=== PATIENT | female | born 1960 | race Caucasian/White ===

== ENCOUNTER → 2019-03-10 | Day surgery (SDC) | payer OTHER ==
[~2019-03-10] MED LIST: ATORVASTATIN CA20 MG PO; ETODOLAC500 MG PO; FENTANYL CITRATE/PF 100MCG/2 ML INJ ONE; GLUCOSAMINE &1 EACH PO; LEXAPRO20 MG PO; MIDAZOLAM HCL 2 MG/2 ML VIAL ONE; MULTIPLE VITAM1 EACH PO; OR PHACO EYE KIT ONE; PREOP PHACO EYE KIT ONE; VITAMIN B-12 PO
--- OUTSIDE RECORDS SUMMARY | 2019-03-10 10:04 | XMS REPORT | Continuity of Care Document ---
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 Role Phone [email or web address] Unavailable Unavailable Problems Problem Status Onset Date Classification Date Reported Comments Source SLURRED SPEECH Active 03/04/2017 [facility] SLURRED SPEECH, CEREBROVASCULAR ACCIDENT Active 03/04/2017 [place] APPENDICITIS Active 06/16/2014 [place] L KNEE Active 05/18/2013 [facility] Left leg pain Active Problem 06/19/2017 Thien Keyhani History of CVA Active Problem 06/19/2017 Th[facility] Problem 03[facility]2017 [facility] Hearing difficulty Resolved Problem 03/09/2017 [place] Hyperlipemia Resolved Problem 03/09/2017 [place] Arthritis Resolved Problem 03/09/2017 [place] Depressed Resolved Problem 03/09/2017 [place] Neuropathy Resolved Problem 03/09/2017 [place] APPENDICITIS NOS Active [place] CEREBRAL INFARCTION, UNSPECIFIED Active [facility] SLURRED SPEECH Active [facility] Medications Medication Details Route Status Patient Instructions Ordering Provider Order Date Source Cefuroxime 250 MG Oral Tablet [Ceftin] 250 mg=1 tab, PO, BID, X 7 day, # 14 tab, 0 Refill(s) Active 03/06/2017 [facility] Lexapro 20 mg, 2 tab, Route: PO, Drug form: TAB, Bedtime, Dosing Weight 114.091, kg, PRN Pain Score 1-5, Start date: 03/06/17 1:03:00 CDT, Duration: 30 day, Stop date: 04/05/17 1:02:00 CDTNotes: (Same as: Lexapro) Inactive 03/06/2017 [facility] Rocephin 1 gm, Route: IVPB, [id number], Dosing Weight 114.091, kg, Start date: 03/05/17 16:00:00 CDT, Duration: 3 day, Stop date: 03/07/17 16:00:00 CDT, ABX Indication: Other (specify in Comments)Notes: (Same As: Jona magaña). Use with 100 mL NS and infuse over 30 min MEDICATION WASTE Product Size: 1000 mg Product Wasted: ___ mg No Longer Active 03/05/2017 [facility] Pneumovax 23 0.5 mL, Route: IM, Drug Form: INJ, Daily, Start date: 03/05/17 11:00:00 CDT, Duration: 1 doses or times, Stop date: 03/05/17 11:00:00 CDTNotes: (Same as: Pneumovax 23) Refrigerate Inactive 03/05/2017 [facility] pneumococcal capsular polysaccharide type 1 vaccine / pneumococcal capsular polysaccharide type 10A vaccine / pneumococcal capsular polysaccharide type 11A vaccine / pneumococcal capsular polysaccharide type 12F vaccine / pneumococcal capsular polysacchar 0.5 mL, Route: IM, Drug Form: INJ, Daily, Start date: 03/05/17 9:00:00 CDT, Duration: 1 doses or times, Stop date: 03/05/17 9:00:00 CDTNotes: (Same as: Pneumovax 23) Refrigerate Inactive 03/05/2017 [facility] Aspirin 81 mg, 1 tab, Route: PO, Drug form: ECTAB, Daily, Dosing Weight 112.443, kg, Start date: 03/05/17 9:00:00 CDT, Duration: 30 day, Stop date: 04/03/17 9:00:00 CDTNotes: Do not crush or chew. (Same As: Ecotrin) No Longer Active 03/05/2017 [facility] Simvastatin 10 mg, 2 tab, Route: PO, Drug form: TAB, Bedtime, Dosing Weight 112.443, kg, Start date: 03/04/17 21:00:00 CDT, Duration: 30 day, Stop date: 04/02/17 21:00:00 CDTNotes: (Same as: Zocor) No Longer Active 03/05/2017 [facility] Aspirin 81 mg, PO, Daily, 0 Refill(s) Active 03/05/2017 [facility] gabapentin 300 MG Oral Capsule 300 mg=1 cap, PO, BID, # 90 cap, 1 Refill(s) Active 03/05/2017 [facility] gabapentin 300 MG Oral Capsule 300 mg, 1 cap, Route: PO, Drug form: CAP, BID, Dosing Weight 112.443, kg, Start date: 03/04/17 17:00:00 CDT, Duration: 30 day, Stop date: 04/03/17 9:00:00 CDTNotes: (Same as: Neurontin) No Longer Active 03/04/2017 [facility] Docusate 100 mg, 1 cap, Route: PO, Drug form: CAP, BID, Dosing Weight 112.443, kg, Start date: 03/04/17 17:00:00 CDT, Duration: 30 day, Stop date: 04/03/17 9:00:00 CDTNotes: (Same as: Colace) (Do Not Crush) No Longer Active 03/04/2017 [facility] tramadol hydrochloride 50 MG Oral Tablet 50 mg, 1 tab, Route: PO, Drug form: TAB, Q6H, Dosing Weight 112.443, kg, PRN Pain Score 1-3, Start date: 03/04/17 16:34:00 CDT, Duration: 30 day, Stop date: 04/03/17 16:33:00 CDTNotes: Not to exceed 400mg/day. (Same As: Ultram) No Longer Active 03/04/2017 [facility] Ondansetron 4 mg, 2 mL, Route: IVP, Drug form: INJ, Q6H, Dosing Weight 112.443, kg, PRN Nausea & Vomiting, Start date: 03/04/17 16:24:00 CDT, Duration: 30 day, Stop date: 04/03/17 16:23:00 CDTNotes: (Same as: Zofran) MEDICATION WASTE Product Size: 4 mg Product Wasted: ___ mg No Longer Active 03/04/2017 [facility] Acetaminophen 650 mg, 2 tab, Route: PO, Drug form: TAB, Q4H, Dosing Weight 112.443, kg, PRN Pain 1-3/Temp > 100.4 F, Start date: 03/04/17 16:24:00 CDT, Duration: 30 day, Stop date: 04/03/17 16:23:00 CDTNotes: Do not exceed 4 gm/day. (Same as: Tylenol) No Longer Active 03/04/2017 [facility] Aspirin 325 mg, 1 tab, Route: PO, Drug form: TAB, ONCE, Dosing Weight 112.443, kg, Priority: STAT, Start date: 03/04/17 15:32:00 CDT, Stop date: 03/04/17 15:32:00 CDTNotes: Take with food. Inactive 03/04/2017 [facility] NS (Bolus) IV 1,000 mL, 1,000 ml/hr, Infuse Over: 1 hr, Route: IV, 1,000, Drug form: INJ, ONCE, Priority: STAT, Dosing Weight 112.443 kg, Start date: 03/04/17 15:27:00 CDT, Duration: 1 doses or times, Stop date: 0 03/04/17 15:27:00 CDT Inactive 03/04/2017 [facility] Saline Flush 0.9% 10 mL, Route: IVP, Drug Form: INJ, Dosing Weight 112.443, kg, PRN, PRN Line Flush, Start date: 03/04/17 14:44:00 CDT, Duration: 30 day, Stop date: 04/03/17 14:43:00 CDTNotes: Same as: BD Posiflush Sterile No Longer Active 03/04/2017 [facility] Acetaminophen 300 MG / Codeine Phosphate 30 MG Oral Tablet [Tylenol with Codeine #3] 1 tab, PO, Q6H, for pain, # 30 tab, 0 Refill(s) Active 06/17/2014 [facility] Lovenox 40 mg, 0.4 mL, Route: SUB-Q, Drug form: INJ, Q24H, Dosing Weight 102.727, kg, Start date: 06/17/14 7:00:00, Duration: 30 day, Stop date: 07/16/14 7:00:00Notes: (Same as: Lovenox) Inactive 06/17/2014 [facility] Etodolac 300 MG Oral Capsule [Lodine] 500 mg, PO, BID, 0 Refill(s) Active 06/17/2014 [facility] simvastatin 40 mg oral tablet 500 mg=, PO, Bedtime, # 30 tab, 0 Refill(s) Active 06/17/2014 [facility] Famotidine 20 mg, 1 tab, Route: PO, Drug form: TAB, Q12H, Dosing Weight 102.727, kg, Start date: 06/16/14 9:00:00, Duration: 30 day, Stop date: 07/15/14 21:00:00Notes: (Same as: Pepcid) No Longer Active 06/16/2014 [facility] Albuterol 0.83 MG/ML Inhalant Solution 2.49 mg, 3 mL, Route: NEB, Drug form: SOLN, PRN, Dosing Weight 102.727, kg, PRN Respiratory Protocol, Start date: 06/16/14 8:15:00, Duration: 30 day, Stop date: 07/16/14 8:14:00Notes: SEE RT DOCUMENTATION (Same as: Proventil) Inactive 06/16/2014 [facility] Dexamethasone 4 mg, 1 mL, Route: IVP, Drug form: INJ, ONCE, Dosing Weight 102.727, kg, PRN Nausea & Vomiting, Start date: 06/16/14 8:15:00Notes: Concentration: 4mg/ml Inactive 06/16/2014 [facility] Promethazine 6.25 mg, 25 mL, Route: IVPB, Drug form: SOLN, ONCE, Dosing Weight 102.727, kg, PRN Nausea & Vomiting, Start date: 06/16/14 8:15:00 Inactive 06/16/2014 [facility] Ondansetron 4 mg, Route: IVP, ONCE, Dosing Weight 102.727, kg, PRN Nausea & Vomiting, Start date: 06/16/14 8:15:00 Inactive 06/16/2014 [facility] Naloxone 0.1 mg, 0.25 mL, Route: SUB-Q, Drug form: INJ, Q6H, Dosing Weight 102.727, kg, PRN Itching, Start date: 06/16/14 8:15:00, Duration: 30 day, Stop date: 07/16/14 8:14:00Notes: Same as Narcan Inactive 06/16/2014 [facility] Flumazenil 0.2 mg, 2 mL, Route: IVP, Drug form: INJ, PRN, Dosing Weight 102.727, kg, PRN Benzodiazepine Reversal, Initial dose, Start date: 06/16/14 8:15:00, Duration: 30 day, Stop date: 07/16/14 8:14:00Notes: (Same as: Romazicon) Inactive 06/16/2014 [facility] Ephedrine 5 mg, 0.1 mL, Route: IVP, Drug form: INJ, Q5Min, Dosing Weight 102.727, kg, PRN Low Blood Pressure, Start date: 06/16/14 8:15:00, Duration: 30 day, Stop date: 07/16/14 8:14:00Notes: (Same as: ePHEDrine Sulfate) Inactive 06/16/2014 [facility] Glycopyrrolate 0.2 mg, 1 mL, Route: IVP, Drug form: INJ, Q5Min, Dosing Weight 102.727, kg, PRN Bradycardia, Start date: 06/16/14 8:15:00, Duration: 3 doses or times, Stop date: Limited # of timesNotes: (Same as: Dawson) Inactive 06/16/2014 [facility] Racepinephrine 11.25 mg, 0.5 mL, Route: NEB, Drug Form: SOLN, Dosing Weight 102.727, kg, PRN, PRN Shortness of breath, Start date: 06/16/14 8:15:00, Duration: 30 day, Stop date: 07/16/14 8:14:00Notes: (racepinephrine *2.25% inh 0.5ml SOLN) (Same as:S2) Inactive 06/16/2014 [facility] Diphenhydramine 12.5 mg, 0.25 mL, Route: IVP, Drug form: INJ, Q6H, Dosing Weight 102.727, kg, PRN Itching, Start date: 06/16/14 8:15:00, Duration: 30 day, Stop date: 07/16/14 8:14:00Notes: (Same as: Benadryl) Inactive 06/16/2014 [facility] Oxycodone 10 mg, 2 tab, Route: PO, Drug form: TAB, Q4H, Dosing Weight 102.727, kg, PRN Pain Score 7-10, Start date: 06/16/14 8:15:00, Duration: 30 day, Stop date: 07/16/14 8:14:00Notes: (Same as: Roxicodone) Inactive 06/16/2014 [facility] Fentanyl 25 microgram, 0.5 mL, Route: IVP, Drug form: INJ, Q5Min, Dosing Weight 102.727, kg, PRN Pain Score 4-6, Start date: 06/16/14 8:15:00, Duration: 4 doses or times, Stop date: Limited # of timesNotes: (Same as: Sublimaze) Preservative free. Inactive 06/16/2014 [facility] Hydromorphone 0.5 mg, 0.25 mL, Route: IVP, Drug form: INJ, Q5Min, Dosing Weight 102.727, kg, PRN Pain Score 7-10, Start date: 06/16/14 8:15:00, Duration: 4 doses or times, Stop date: Limited # of timesNotes: Same as: Dilaudid Inactive 06/16/2014 [facility] Morphine 2 mg, 1 mL, Route: IVP, Drug form: INJ, Q5Min, Dosing Weight 102.727, kg, PRN Pain Score 4-6, Start date: 06/16/14 8:15:00, Duration: 5 doses or times, Stop date: Limited # of timesNotes: (Same as:MO RPhine Sulfate) Inactive 06/16/2014 [facility] Acetaminophen 1,000 mg, 100 mL, Route: IVPB, Drug form: INJ, ONCE, Dosing Weight 102.727, kg, PRN Pain Score 1-3, Start date: 06/16/14 8:15:00, Duration: 1 doses or times, Stop date: Limited # of timesNotes: Infuse over 15 minutes Do not exceed 4gm/day of acetaminophen Inactive 06/16/2014 [facility] Labetalol 10 mg, 2 mL, Route: IVP, Drug form: INJ, Q5Min, Dosing Weight 102.727, kg, PRN Elevated BP, Start date: 06/16/14 8:15:00, Duration: 5 doses or times, Stop date: Limited # of times Inactive 06/16/2014 [facility] Hydralazine 10 mg, 0.5 mL, Route: IVP, Drug form: INJ, Q20Min, Dosing Weight 102.727, kg, PRN Elevated BP, Start date: 06/16/14 8:15:00, Duration: 2 doses or times, Stop date: Limited # of timesNotes: (Same as: Apresoline) Push over 5 minutes Inactive 06/16/2014 [facility] Calcium Chloride 0.0014 MEQ/ML / Potassium Chloride 0.004 MEQ/ML / Sodium Chloride 0.103 MEQ/ML / Sodium Lactate 0.028 MEQ/ML Injectable Solution 500 mL, Rate: 125 ml/hr, Infuse over: 4 hr, Route: IV, Dosing Weight 102.727 kg, Total Volume: 500, Start date: 06/16/14 8:15:00, Duration: 30 day, Stop date: 07/16/14 8:14:00 Inactive 06/16/2014 [facility] Ondansetron 4 mg, 2 mL, Route: IVP, Drug form: INJ, Q6H, Dosing Weight 102.727, kg, PRN Nausea & Vomiting, Start date: 06/16/14 7:57:00, Duration: 30 day, Stop date: 07/16/14 7:56:00Notes: (Same as: Zofran) No Longer Active 06/16/2014 [facility] Temazepam 7.5 mg, 1 cap, Route: PO, Drug form: CAP, Bedtime, Dosing Weight 102.727, kg, PRN Insomnia, Start date: 06/16/14 7:57:00, Duration: 30 day, Stop date: 07/16/14 7:56:00Notes: (Same As: Restoril) No Longer Active 06/16/2014 [facility] Acetaminophen 325 MG / Hydrocodone Bitartrate 10 MG Oral Tablet 1 tab, Route: PO, Drug Form: TAB, Dosing Weight 102.727, kg, Q4H, PRN Pain Score 1-3, Start date: 06/16/14 7:57:00, Duration: 30 day, Stop date: 07/16/14 7:56:00Notes: Do not exceed 4gm/day of acetaminophen. (Same as: [place] 325/10) No Longer Active 06/16/2014 [facility] Morphine 2 mg, 1 mL, Route: IVP, Drug form: INJ, Q2H, Dosing Weight 102.727, kg, PRN Pain Score 4-6, Start date: 06/16/14 7:57:00, Duration: 30 day, Stop date: 07/16/14 7:56:00Notes: (Same as:MORPhine Sulfate) No Longer Active 06/16/2014 [facility] Calcium Chloride 0.0014 MEQ/ML / Potassium Chloride 0.004 MEQ/ML / Sodium Chloride 0.103 MEQ/ML / Sodium Lactate 0.028 MEQ/ML Injectable Solution 500 mL, Rate: 75 ml/hr, Infuse over: 6.7 hr, Route: IV, Dosing Weight 102.727 kg, Total Volume: 500, Start date: 06/16/14 7:57:00, Duration: 30 day, Stop date: 07/16/14 7:56:00 No Longer Active 06/16/2014 [facility] Escitalopram 20 MG Oral Tablet [Lexapro] 20 mg, PO, Bedtime, Pain Score 1-5, # 30 tab, 0 Refill(s) Active 06/16/2014 [facility] Lactated Ringers IV 500 mL 500 mL, Rate: 40 ml/hr, Infuse over: 12.5 hr, Route: IV, Dosing Weight 48.182 kg, Total Volume: 500, Start date: 06/16/14 5:10:00, Duration: 30 day, Stop date: 07/16/14 5:09:00 Inactive 06/16/2014 [facility] Invanz 1 gm, Route: IVPB, Drug form: INJ, [id number], Dosing Weight 48.182, kg, Start date: 06/16/14 3:00:00, Duration: 30 day, Stop date: 07/15/14 3:00:00Notes: (Same as: INVanz) Refrigerate. NOT COMPATIBLE WITH D5W. Stable in refrigerator for 24 hours. No Longer Active 06/16/2014 [facility] Zofran 4 mg, 2 mL, Route: IV, Drug form: INJ, Q8H, Dosing Weight 48.182, kg, PRN as needed for nausea/vomiting, Start date: 06/16/14 2:47:00, Duration: 30 day, Stop date: 07/16/14 2:46:00Notes: (Same as: Zofran) Inactive 06/16/2014 [facility] Morphine 4 mg, 1 mL, Route: IV, Drug form: INJ, Q2H, Dosing Weight 48.182, kg, PRN Pain, Start date: 06/16/14 2:47:00, Duration: 30 day, Stop date: 07/16/14 2:46:00, Severe pain 7-10Notes: (Same as:MORPhine Sulfate) Inactive 06/16/2014 [facility] Lactated Ringers IV 1,000 mL 1,000 mL, Rate: 100 ml/hr, Infuse over: 10 hr, Route: IV, Dosing Weight 48.182 kg, Total Volume: 1,000, Start date: 06/16/14 2:43:00, Duration: 30 day, Stop date: 07/16/14 2:42:00 Inactive 06/16/2014 [facility] Allergies, Adverse Reactions, Alerts No Known Medication Allergies Immunizations Immunization Date Given Site Status Last Updated Comments Source pneumococcal 23-valent vaccine 03/05/2017 Right deltoid completed [facility] Results Order Name Results Value Reference Range Date Interpretation Comments Source CHEM PANEL A/G Ratio 0.9 0.7 - 1.6 03/05/2017 [facility] CHEM PANEL AGAP 11.3 10.0 - 20.0 03/05/2017 [facility] CHEM PANEL B/C Ratio 22 6 - 25 03/05/2017 [facility] CHEM PANEL Globulin 3.8 2.7 - 4.2 03/05/2017 [facility] CHEM PANEL eGFR 77 03/05/2017 Result Comment: The eGFR is calculated using the CKD-EPI formula. In most young, healthy individuals the eGFR will be >90 mL/min/1.73m2. The eGFR declines with age. An eGFR of 60-89 may be normal in some populations, particularly the elderly, for whom the CKD-EPI formula has not been extensively validated. Use of the eGFR is not recommended in the following populations:

Individuals with unstable creatinine concentrations, including patients and those with serious co-morbid conditions.

Patients with extremes in muscle mass or diet.

The data above are obtained from the National Kidney Disease Education Program (NKDEP) which additionally recommends that when the eGFR is used in patients with extremes of body mass index for purposes of drug dosing, the eGFR should be multiplied by the estimated BMI. [place] CHEM PANEL Creatinine Lvl 0.85 0.50 - 1.40 03/05/2017 [place] CHEM PANEL Sodium Lvl 142 135 - 145 03/05/2017 [place] CHEM PANEL Potassium Lvl 4.3 3.5 - 5.1 03/05/2017 [place] CHEM PANEL Glucose Lvl 91 70 - 99 03/05/2017 [place] CHEM PANEL BUN 19 7 - 22 03/05/2017 [place] CHEM PANEL AST 16 0 - 37 03/05/2017 [place] CHEM PANEL Bili Total 0.4 0.2 - 1.3 03/05/2017 [place] CHEM PANEL Alk Phos 84 39 - 136 03/05/2017 [place] CHEM PANEL Chloride Lvl 109 95 - 109 03/05/2017 [place] CHEM PANEL CO2 26 24 - 32 03/05/2017 [place] CHEM PANEL Calcium Lvl 9.9 8.5 - 10.5 03/05/2017 [place] CHEM PANEL Total Protein 7.1 6.4 - 8.4 03/05/2017 [place] CHEM PANEL Albumin Lvl 3.3 3.5 - 5.0 03/05/2017 [place] CHEM PANEL ALT 22 0 - 65 03/05/2017 [place] HEMATOLOGY Eosinophils # 0.1 0.0 - 0.5 03/05/2017 [place] HEMATOLOGY Lymphocytes # 2.5 1.0 - 5.5 03/05/2017 [place] HEMATOLOGY Segs-Bands # 7.5 1.5 - 8.1 03/05/2017 [place] HEMATOLOGY Monocytes # 0.7 0.0 - 0.8 03/05/2017 [place] HEMATOLOGY Basophils 0.4 0.0 - 1.0 03/05/2017 [place] HEMATOLOGY Eosinophils 1.2 0.0 - 4.0 03/05/2017 [place] HEMATOLOGY Monocytes 6.5 2.0 - 12.0 03/05/2017 [facility] HEMATOLOGY Segs 69.3 45.0 - 75.0 03/05/2017 [facility] HEMATOLOGY Lymphocytes 22.6 20.0 - 40.0 03/05/2017 [facility] HEMATOLOGY RDW 15.2 11.5 - 14.5 03/05/2017 [facility] HEMATOLOGY Platelet 263 133 - 450 03/05/2017 [facility] HEMATOLOGY MCHC 32.7 32.0 - 36.0 03/05/2017 [facility] HEMATOLOGY MCH 27.8 27.0 - 31.0 03/05/2017 [facility] HEMATOLOGY MPV 9.2 7.4 - 10.4 03/05/2017 [facility] HEMATOLOGY MCV 85.0 80.0 - 98.0 03/05/2017 [facility] HEMATOLOGY Hct 40.6 36.0 - 48.0 03/05/2017 [facility] HEMATOLOGY RBC 4.78 4.20 - 5.40 03/05/2017 [facility] HEMATOLOGY Hgb 13.3 12.0 - 16.0 03/05/2017 [facility] HEMATOLOGY WBC 10.9 3.7 - 10.4 03/05/2017 [facility] URINE AND STOOL UA Urobilinogen <=1.0 mg/dL 0.1 - 1.0 03/05/2017 [facility] URINE AND STOOL UA Spec Grav >=1.050 *ABN* (03/04/17 7:01 PM) <=1.030 03/05/2017 [facility] URINE AND STOOL UA RBC 4 0 - 2 03/05/2017 [facility] URINE AND STOOL UA Mucus Few /LPF None Seen /LPF 03/05/2017 [facility] URINE AND STOOL UA WBC 20 0 - 5 03/05/2017 [facility] URINE AND STOOL UA Sq Epi Few /LPF Few /LPF 03/05/2017 [facility] URINE AND STOOL UA Blood Negative (03/04/17 7:01 PM) Negative 03/05/2017 [facility] URINE AND STOOL UA Bili Moderate *ABN* (03/04/17 7:01 PM) Negative 03/05/2017 [facility] URINE AND STOOL UA Nitrite Positive *ABN* (03/04/17 7:01 PM) Negative 03/05/2017 [facility] URINE AND STOOL UA Leuk Est Large *ABN* (03/04/17 7:01 PM) Negative 03/05/2017 [facility] URINE AND STOOL UA Protein 20 mg/dL Negative mg/dL 03/05/2017 [facility] URINE AND STOOL UA pH 6.5 5.0 - 8.0 03/05/2017 [facility] URINE AND STOOL UA Turbidity Clear (03/04/17 7:01 PM) Clear 03/05/2017 [facility] URINE AND STOOL UA Color Yellow *NA* (03/04/17 7:01 PM) Yellow 03/05/2017 [facility] URINE AND STOOL UA Glucose Negative mg/dL Negative mg/dL 03/05/2017 [facility] URINE AND STOOL UA Ketones Negative mg/dL Negative mg/dL 03/05/2017 [facility] CARDIAC ENZYMES Troponin-I <0.02 0.00 - 0.40 03/04/2017 [facility] CARDIAC ENZYMES CK MB <1.0 0.5 - 3.6 03/04/2017 [facility] CARDIAC ENZYMES Total CK 74 12 - 191 03/04/2017 [facility] CARDIAC ENZYMES CK MB Index <1.4 0.0 - 2.5 03/04/2017 [facility] CHEM PANEL eGFR 58 03/04/2017 Result Comment: The eGFR is calculated using the CKD-EPI formula. In most young, healthy individuals the eGFR will be >90 mL/min/1.73m2. The eGFR declines with age. An eGFR of 60-89 may be normal in some populations, particularly the elderly, for whom the CKD-EPI formula has not been extensively validated. Use of the eGFR is not recommended in the following populations:

Individuals with unstable creatinine concentrations, including patients and those with serious co-morbid conditions.

Patients with extremes in muscle mass or diet.

The data above are obtained from the National Kidney Disease Education Program (NKDEP) which additionally recommends that when the eGFR is used in patients with extremes of body mass index for purposes of drug dosing, the eGFR should be multiplied by the estimated BMI. [place] CHEM PANEL Globulin 4.0 2.7 - 4.2 03/04/2017 [facility] CHEM PANEL A/G Ratio 0.8 0.7 - 1.6 03/04/2017 [place] CHEM PANEL B/C Ratio 21 6 - 25 03/04/2017 [place] CHEM PANEL Creatinine Lvl 1.06 0.50 - 1.40 03/04/2017 [place] CHEM PANEL Chloride Lvl 110 95 - 109 03/04/2017 [place] CHEM PANEL Potassium Lvl 4.0 3.5 - 5.1 03/04/2017 [place] CHEM PANEL Bili Total 0.5 0.2 - 1.3 03/04/2017 [place] CHEM PANEL AGAP 12.0 10.0 - 20.0 03/04/2017 [place] CHEM PANEL Sodium Lvl 142 135 - 145 03/04/2017 [place] CHEM PANEL AST 19 0 - 37 03/04/2017 [place] CHEM PANEL Alk Phos 86 39 - 136 03/04/2017 [place] CHEM PANEL ALT 19 0 - 65 03/04/2017 [place] CHEM PANEL Albumin Lvl 3.4 3.5 - 5.0 03/04/2017 [place] CHEM PANEL Total Protein 7.4 6.4 - 8.4 03/04/2017 [place] CHEM PANEL Calcium Lvl 10.1 8.5 - 10.5 03/04/2017 [place] CHEM PANEL CO2 24 24 - 32 03/04/2017 [place] CHEM PANEL BUN 22 7 - 22 03/04/2017 [place] CHEM PANEL Glucose Lvl 110 70 - 99 03/04/2017 [place] HEMATOLOGY PTT 24.3 22.9 - 35.8 03/04/2017 [place] HEMATOLOGY PT 12.6 12.0 - 14.7 03/04/2017 [place] HEMATOLOGY INR 0.92 0.85 - 1.17 03/04/2017 [facility] HEMATOLOGY MPV 9.0 7.4 - 10.4 03/04/2017 [place] HEMATOLOGY MCHC 32.6 32.0 - 36.0 03/04/2017 [facility] HEMATOLOGY Platelet 297 133 - 450 03/04/2017 [facility] HEMATOLOGY RDW 15.5 11.5 - 14.5 03/04/2017 [facility] HEMATOLOGY RBC 4.90 4.20 - 5.40 03/04/2017 [facility] HEMATOLOGY Hct 41.6 36.0 - 48.0 03/04/2017 [place] HEMATOLOGY MCV 84.9 80.0 - 98.0 03/04/2017 [place] HEMATOLOGY MCH 27.6 27.0 - 31.0 03/04/2017 [place] HEMATOLOGY Hgb 13.5 12.0 - 16.0 03/04/2017 [place] HEMATOLOGY WBC 10.3 3.7 - 10.4 03/04/2017 [place] HEMATOLOGY Eosinophils # 0.1 0.0 - 0.5 03/04/2017 [place] HEMATOLOGY Lymphocytes # 2.2 1.0 - 5.5 03/04/2017 [place] HEMATOLOGY Monocytes # 0.8 0.0 - 0.8 03/04/2017 [place] HEMATOLOGY Segs-Bands # 7.2 1.5 - 8.1 03/04/2017 [place] HEMATOLOGY Basophils 0.3 0.0 - 1.0 03/04/2017 [place] HEMATOLOGY Eosinophils 0.7 0.0 - 4.0 03/04/2017 [place] HEMATOLOGY Monocytes 8.0 2.0 - 12.0 03/04/2017 [place] HEMATOLOGY Lymphocytes 21.1 20.0 - 40.0 03/04/2017 [place] HEMATOLOGY Segs 69.9 45.0 - 75.0 03/04/2017 [facility] LIPIDS CHD Risk 3.05 3.90 - 5.80 03/04/2017 [place] LIPIDS VLDL 47 03/04/2017 [facility] LIPIDS LDL (Calculated) 74 <=99 mg/dL 03/04/2017 [facility] LIPIDS Chol 180 <=199 mg/dL 03/04/2017 [facility] LIPIDS Trig 236 <=149 mg/dL 03/04/2017 [facility] [facility] LIPIDS HDL 59 >=61 mg/dL 03/04/2017 [place] SPECIAL CHEMISTRY Hgb A1C 6.3 <=5.6 % 03/04/2017 [place] CHEM PANEL POC BUN 24 7 - 22 03/04/2017 [facility] CHEM PANEL POC Creatinine 1.0 0.5 - 1.4 03/04/2017 [facility] CHEM PANEL POC Ion Ca 1.29 1.05 - 1.25 03/04/2017 [place] CHEM PANEL POC Glucose 114 70 - 99 03/04/2017 [facility] CHEM PANEL eGFR 63 03/04/2017 Result Comment: The eGFR is calculated using the CKD-EPI formula. In most young, healthy individuals the eGFR will be >90 mL/min/1.73m2. The eGFR declines with age. An eGFR of 60-89 may be normal in some populations, particularly the elderly, for whom the CKD-EPI formula has not been extensively validated. Use of the eGFR is not recommended in the following populations:

Individuals with unstable creatinine concentrations, including patients and those with serious co-morbid conditions.

Patients with extremes in muscle mass or diet.

The data above are obtained from the National Kidney Disease Education Program (NKDEP) which additionally recommends that when the eGFR is used in patients with extremes of body mass index for purposes of drug dosing, the eGFR should be multiplied by the estimated BMI. [facility] CHEM PANEL POC Hemoglobin 15.3 12.0 - 16.0 03/04/2017 [facility] CHEM PANEL POC Hematocrit 45.0 36.0 - 48.0 03/04/2017 [facility] CHEM PANEL POC AGAP 16.0 10.0 - 20.0 03/04/2017 [facility] CHEM PANEL POC Potassium 4.0 3.5 - 5.1 03/04/2017 [facility] CHEM PANEL POC Chloride 108 95 - 109 03/04/2017 [facility] CHEM PANEL POC Carbon Dioxide 24 24 - 32 03/04/2017 [facility] CHEM PANEL POC Sodium 143 135 - 145 03/04/2017 [facility] HEMATOLOGY Basophils 0.1 0.0 - 1.0 06/17/2014 [facility] HEMATOLOGY Lymphocytes # 1.4 1.0 - 5.5 06/17/2014 [facility] HEMATOLOGY Eosinophils # 0.0 0.0 - 0.5 06/17/2014 [facility] HEMATOLOGY Monocytes # 0.6 0.0 - 0.8 06/17/2014 [facility] HEMATOLOGY Basophils # 0.0 0.0 - 0.2 06/17/2014 [facility] HEMATOLOGY Segs-Bands # 6.6 1.5 - 8.1 06/17/2014 [facility] HEMATOLOGY Segs 77.0 45.0 - 75.0 06/17/2014 [facility] HEMATOLOGY Lymphocytes 16.0 20.0 - 40.0 06/17/2014 [facility] HEMATOLOGY Eosinophils 0.2 0.0 - 4.0 06/17/2014 [facility] HEMATOLOGY Monocytes 6.7 2.0 - 12.0 06/17/2014 [facility] MPV 8.8 7.4 - 10.4 06/17/2014 [facility] RDW 14.5 11.5 - 14.5 06/17/2014 [facility] HEMATOLOGY MCHC 32.2 32.0 - 36.0 06/17/2014 [facility] Platelet 174 133 - 450 06/17/2014 [facility] MCH 29.3 27.0 - 31.0 06/17/2014 [facility] RBC 3.77 4.20 - 5.40 06/17/2014 [facility] Hgb 11.0 12.0 - 16.0 06/17/2014 [facility] Hct 34.2 36.0 - 48.0 06/17/2014 [facility] MCV 90.9 80.0 - 98.0 06/17/2014 [facility] WBC 8.5 3.7 - 10.4 06/17/2014 [facility] Pathology Reports No Data Provided for This Section Diagnostic Reports Report Value Date Source Brain wo contrast MRI Clinical Indication: - CVA eval. Slurred speech Comparison: CTA head and neck CT 03/04/2017 TECHNIQUE: MRI of the brain is performed without gadolinium contrast with axial T1, T2, FLAIR and diffusion weighted imaging along with sagittal T2, and coronal T1 weighted imaging. No intravenous contrast administration. FINDINGS: BRAIN PARENCHYMA: Brain parenchymal signal characteristics are appropriate for age. Mild generalized age-related parenchymal atrophy. There is no mass effect or midline shift. There are no extra-axial fluid collection, or intraparenchymal hemorrhage. There is no magnetic susceptibility to suggest recent or remote intracranial hemorrhage. There is no diffusion weighted imaging or ADC map abnormality to suggest acute/subacute ischemia. Remote left cerebellar hemispheric infarct. CEREBELLOPONTINE REGIONS AND SKULL BASE: The cerebellopontine angles appear unremarkable. The skull base, craniocervical junction, and brainstem region are normal. The optic chiasm is normal. The sellar and pineal regions are unremarkable. VENTRICLES: No acute hydrocephalus. Basilar cisterns are patent. VESSELS: The expected intracranial flow voids are maintained. ORBITS, VISUALIZED PARANASAL SINUSES AND MASTOIDS: No acute abnormality of the visualized orbits or paranasal sinuses. The mastoid air cells are clear. IMPRESSION: 1. No magnetic resonance imaging evidence for acute intracranial process. 2. Remote left cerebellar hemispheric infarct. 3. Mild age-related parenchymal volume loss. SL: [id number] 03/05/2017 [facility] Chest 1view DX Clinical Indication: - slurred speech Comparison: None FINDINGS: Single frontal radiograph of the chest is performed. Heart size is within normal limits. Mediastinal contours are unremarkable. Lungs are clear without infiltrate or mass. No pleural effusion or pneumothorax. No acute osseous abnormality. IMPRESSION: 1. No radiographic evidence for acute process in the chest. SL: [id number] 03/04/2017 [facility] Brain/Neck CTA EXAM: CT angiography of the head and neck with IV contrast; CT head without IV contrast INDICATION: Slurred speech COMPARISON: None Technique: Axial CT images through the head, neck, and upper chest were obtained with IV contrast. Axial CT images through the head without IV contrast were also obtained. Coronal and sagittal reformats were obtained. 3-D reconstructions were obtained as well. Contrast: 100 cc of IV Omnipaque contrast material was used for the exam. CT Radiation Dose DLP 2753.0 mGy-cm FINDINGS: HEAD: No evidence for hemorrhage, mass, or acute infarct. Lacunar infarct involving the vasogenic edema is identified on series 2 image 24. Infarct involving the superior left cerebellum is also nonacute. Lateral ventricles are symmetric and nondilated. Basal cisterns are widely patent. Chatterjee-white matter differentiation is maintained. Paranasal sinuses and mastoid air cells are clear. Orbits are within normal limits. No acute osseous abnormalities identified. NECK: Parotid, submandibular, and thyroid glands are within normal limits. The aerodigestive tract is within normal limits. Parapharyngeal fat planes are symmetric. No threshold and enlarged cervical or supraclavicular lymph nodes identified. Visualized superior mediastinal soft tissues are within normal limits. Visualized lung apices are clear. No suspicious lytic or blastic osseous lesions identified. VASCULATURE: Major aortic branch vessels are widely patent. Common carotid arteries are also widely patent. There is minimal amount of atherosclerotic calcification involving the proximal internal carotid arteries at the bifurcation. No hemodynamically significant stenosis is identified. No aneurysm or dissection identified either. Left vertebral arteries are widely patent without aneurysm. No dissection. Left vertebral artery is hypoplastic relative to the left and terminates as the left posterior inferior cerebellar artery. The distal right internal carotid, basilar, and posterior cerebral arteries are widely patent without aneurysm. 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 Atherosclerotic calcifications course along the cavernous portion of the left internal carotid artery. No hemodynamically significant stenosis or aneurysm identified. The middle and anterior cerebral arteries are also patent without aneurysm. 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 No acute intracranial abnormalities otherwise. No hemodynamically significant stenosis or aneurysm involving the head or neck arterial vasculature. SL: [id number] 03/04/2017 [place] Consultation Notes No Data Provided for This Section Discharge Summaries No Data Provided for This Section History and Physicals No Data Provided for This Section Vital Signs Vital Sign Value Date Comments Source Temperature Oral (F) 98.1 F 03/06/2017 [place] Heart Rate 69 03/06/2017 [place] Respitory Rate 14 03/06/2017 [place] Systolic (mm Hg) 131 03/06/2017 [place] Diastolic (mm Hg) 90 03/06/2017 [place] Temperature Oral (F) 98.7 F 03/06/2017 [place] Respitory Rate 20 03/06/2017 [place] Heart Rate 65 03/06/2017 [place] Systolic (mm Hg) 110 03/06/2017 [place] Diastolic (mm Hg) 72 03/06/2017 [place] Respitory Rate 20 03/06/2017 [place] Systolic (mm Hg) 124 03/06/2017 [place] Diastolic (mm Hg) 75 03/06/2017 [place] Heart Rate 67 03/06/2017 [place] Temperature Oral (F) 98.2 F 03/06/2017 [place] BMI Calculated 37.14 03/05/2017 [place] Height 175.26 cm 03/05/2017 [place] Weight 114.091 03/05/2017 [place] Weight 112.443 03/04/2017 [place] Height 175.26 cm 03/04/2017 [place] BMI Calculated 36.61 03/04/2017 [place] Diastolic (mm Hg) 55 06/17/2014 [place] Temperature Oral (F) 98 F 06/17/2014 [place] Systolic (mm Hg) 98 06/17/2014 [place] Heart Rate 54 06/17/2014 [place] Respitory Rate 16 06/17/2014 [place] Diastolic (mm Hg) 66 06/17/2014 [place] Respitory Rate 14 06/17/2014 [place] Heart Rate 62 06/17/2014 [place] Systolic (mm Hg) 104 06/17/2014 [place] Temperature Oral (F) 98.2 F 06/17/2014 [place] Diastolic (mm Hg) 63 06/17/2014 [place] Systolic (mm Hg) 101 06/17/2014 [place] Respitory Rate 14 06/17/2014 [place] Heart Rate 67 06/17/2014 [place] Temperature Oral (F) 97.8 F 06/17/2014 [place] Weight 114.744 06/16/2014 [place] Weight 102.727 06/16/2014 [place] BMI Calculated 34.43 06/16/2014 [place] Height 172.72 cm 06/16/2014 [place] Encounters Location Location Details Encounter Type Encounter Number Reason For Visit Attending Provider ADM Date DC Date Status Source [id number] L KNEE LOLLY GREEN 05/18/2013 Active [facility] Inpatient [id number] Kaiser Raezamzam 06/16/2014 06/17/2014 [facility] Inpatient [id number] Cecilia Austin 03/04/2017 03/06/2017 [facility] Procedures Procedure Code Date Perfomer Comments Source Appendix operation [id number] [place] Cholecystectomy [id number] [place] Hysterectomy [id number] [place] Laparoscopic sleeve gastrectomy [id number] [facility] Assessment and Plan Assessment and Plan Date Source Extracted from:Title: Clinical Document Author: Álvaro Hansen MD Date: 03/06/17 DC Summary dictated # [id number] Extracted from:Title: Neuro Progress Note Author: Glenn Grande DO Date: 03/05/17 Assessment/Plan Patient likely with stroke currently pending MRI. Will treat with antiplatelet medication. She has had multiple strokes in the past that she did not know aboutrecommend stop smoking. Acute UTI Cerebral infarction due to thrombosis of left middle cerebral artery Ordered: [id number] [facility] Care/Day 25 Minutes, 03/05/17 18:07:00 CDT, 24 hr [id number] Initial Inpatient Consult New/Estab Pt 80 Min, 03/04/17 20:57:00 CDT, 24 hr Slurred speech Ordered: [id number] [facility] Care/Day 25 Minutes, 03/05/17 18:07:00 CDT, 24 hr Extracted from:Title: Neurologic consult Author: Glenn Grande DO Date: 03/04/17 Impression and Plan Patient with dizziness and slurred speech concerning for possible stroke. NIH stroke scale was 2 she was not a candidate for TPA due to improvement of symptoms. Stroke risk factors include previous stroke as well as tobacco abuse. Will obtain MRI of the brain and MRA of head and neck echocardiogram. Continue with antiplatelet medication and statin therapy. Recommend stop smoking. Extracted from:Title: General Admission H&P * Author: Cecilia Austin MD Date: 03/04/17 Impression and Plan 56 yo fm with HLD presents with slurred speech concerning for acute CVA 1.CVA with slurred speech -speech continues to be slurred on exam -Concern for CVA -tele Neuro consulted, did not get tpa -CTA H/N without acute findings -MRI brain pending -TTE with bubble study -Neurology consulted -ASA statin -npo until speech eval -permissive HTN 2.HLD -lipid panel pending -continue statin 3.Leg pain -pt had a doppler US done as an oupt. -Have requested RN to get records of results 4.Osteoarthritis -tramadol Code Full Admit to inpatient 03/06/2017 [facility] Extracted from:Title: Clinical Document Author: Kaiser Saldivar MD Date: 06/16/14 Post Operative Procedure Note A complete detailed Operative Report must follow within 24 hours of the procedure. Pre-Operative Diagnosis: Acute appendicitis Post-Operative Diagnosis: same Surgeon/Endoscopist/Physician(s): Janna Water Softener Servicer(s): none Procedure Performed: lap appy Estimated Blood Loss: min Specimens Removed: appendix Findings of the Procedure: as above Dictation ID for complete detailed Operative Report:: Anesthesia:gen/local 06/17/2014 [facility] Plan of Care No Data Provided for This Section Social History Social History Date Source Social History TypeResponse Substance Abuse Use: None. Alcohol Current, Type Wine. Frequency: 1-2 times per year. Smoking Status Current every day smoker; Previous treatment: None; Ready to change: Yes; Concerns about tobacco use in household: No; Exposure to Tobacco Smoke None; Cigarette Smoking Last 365 Days No; Reg Smoking Cessation Counseling No 03/05/2017 [facility] Family History No Data Provided for This Section Advance Directives No Data Provided for This Section Functional Status No Data Provided for This Section
--- OUTSIDE RECORDS SUMMARY | 2019-03-10 10:05 | XMS REPORT ---
Author Author Jass Hoskins Organization [employer] Address Unknown Phone Unavailable Care Team Providers Care Turn Operator Name Role Phone Jass Hoskins CP Unavailable Allergies No Known Allergies Problems Problem Type Condition Code Onset Dates Condition Status Problem Left leg pain M79.605 Active Problem History of CVA (cerebrovascular accident) Z86.73 Active Problem PVD (peripheral vascular disease) I73.9 Active Medications No Known Medications Results No Known Results Summary Purpose [employer] Submission
--- OUTSIDE RECORDS SUMMARY | 2019-03-10 10:05 | XMS REPORT | CCD ---
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
--- OUTSIDE RECORDS SUMMARY | 2019-03-10 10:05 | XMS REPORT | Summary of Care ---
Author Organization Unknown Address Unknown Phone Unavailable Encounter KATEY Thompson(CARL) [id number] Date(s): 06/16/14 - 06/17/14 [facility] [address] [address]- [facility] Discharge Disposition: Home Physician Attending: Kaiser Saldivar MD Physician Admitting: Kaiser Saldivar MD Reason for Visit APPENDICITIS Vital Signs 1 2 3 Most recent to oldest [Reference Range]: 172.72 cm (06/16/14 2:41 AM) Height 98 DegF (06/17/14 6:47 AM) 98.2 DegF (06/17/14 3:51 AM) 97.8 DegF (06/17/14 12:34 AM) Temperature Oral [96.4-99.1 DegF] 98 mmHg (06/17/14 6:47 AM) 104 mmHg (06/17/14 3:51 AM) 101 mmHg (06/17/14 12:34 AM) Systolic Blood Pressure [90-140 mmHg] 55 mmHg *LOW* (06/17/14 6:47 AM) 66 mmHg (06/17/14 3:51 AM) 63 mmHg (06/17/14 12:34 AM) Diastolic Blood Pressure [60-90 mmHg] 16 BRMIN (06/17/14 6:47 AM) 14 BRMIN (06/17/14 3:51 AM) 14 BRMIN (06/17/14 12:34 AM) Respiratory Rate [14-20 BRMIN] 54 bpm *LOW* (06/17/14 6:47 AM) 62 bpm (06/17/14 3:51 AM) 67 bpm (06/17/14 12:34 AM) Peripheral Pulse Rate [60-100 bpm] 114.744 kg (06/16/14 11:18 AM) 102.727 kg (06/16/14 6:00 AM) Weight 34.43 m2 (06/16/14 6:00 AM) Body Mass Index Problem List Condition Effective Dates Status Health Status Informant Abdominal Active pain(Confirmed) Allergies, Adverse Reactions, Alerts Substance Reaction Severity Status NKDA Active Medications acetaminophen 1,000 mg, 100 mL, Route: IVPB, Drug form: INJ, ONCE, Dosing Weight 102.727, kg, PRN Pain Score 1-3, Start date: 06/16/14 8:15:00, Duration: 1 doses or times, St op date: Limited # of times Notes: Infuse over 15 minutes Do not exceed 4gm/day of acetaminophen Start Date: 06/16/14 Stop Date: 06/16/14 Status: Discontinued acetaminophen-hydrocodone 325 mg-10 mg oral tablet 1 tab, Route: PO, Drug Form: TAB, Dosing Weight 102.727, kg, Q4H, PRN Pain Score 1-3, Start date: 06/16/14 7:57:00, Duration: 30 day, Stop date: 07/16/14 7:56:00 Notes: Do not exceed 4gm/day of acetaminophen. (Same as: [place] 325/10) Start Date: 06/16/14 Stop Date: 06/17/14 Status: Discontinued albuterol 0.083% inhalation solution 2.49 mg, 3 mL, Route: NEB, Drug form: SOLN, PRN, Dosing Weight 102.727, kg, PRN Respiratory Protocol, Start date: 06/16/14 8:15:00, Duration: 30 day, Stop date: 07/16/14 8:14:00 Notes: SEE RT DOCUMENTATION (Same as: Saleem) Start Date: 06/16/14 Stop Date: 06/16/14 Status: Discontinued albuterol 0.083% inhalation solution 2.49 mg, 3 mL, Route: NEB, Drug form: SOLN, Q20Min, Dosing Weight 102.727, kg, P RN Wheezing, Priority: STAT, Start date: 06/16/14 8:15:00, Duration: 30 day, Sto p date: 07/16/14 8:14:00 Notes: SEE RT DOCUMENTATION (Same as: Proventil) Start Date: 06/16/14 Stop Date: 06/16/14 Status: Discontinued dexamethasone 4 mg, 1 mL, Route: IVP, Drug form: INJ, ONCE, Dosing Weight 102.727, kg, PRN Timmy sea & Vomiting, Start date: 06/16/14 8:15:00 Notes: Concentration: 4mg/ml Start Date: 06/16/14 Stop Date: 06/16/14 Status: Discontinued diphenhydrAMINE 12.5 mg, 0.25 mL, Route: IVP, Drug form: INJ, Q6H, Dosing Weight 102.727, kg, AR N Itching, Start date: 06/16/14 8:15:00, Duration: 30 day, Stop date: 07/16/14 8 :14:00 Notes: (Same as: Benadryl) Start Date: 06/16/14 Stop Date: 06/16/14 Status: Discontinued ePHEDrine 5 mg, 0.1 mL, Route: IVP, Drug form: INJ, Q5Min, Dosing Weight 102.727, kg, PRN Low Blood Pressure, Start date: 06/16/14 8:15:00, Duration: 30 day, Stop date: 09/16/13 8:14:00 Notes: (Same as: ePHEDrine Sulfate) Start Date: 06/16/14 Stop Date: 06/16/14 Status: Discontinued famotidine 20 mg, 1 tab, Route: PO, Drug form: TAB, Q12H, Dosing Weight 102.727, kg, Start date: 06/16/14 9:00:00, Duration: 30 day, Stop date: 07/15/14 21:00:00 Notes: (Same as: Pepcid) Start Date: 06/16/14 Stop Date: 06/17/14 Status: Discontinued fentaNYL 25 microgram, 0.5 mL, Route: IVP, Drug form: INJ, Q5Min, Dosing Weight 102.727, kg, PRN Pain Score 4-6, Start date: 06/16/14 8:15:00, Duration: 4 doses or times , Stop date: Limited # of times Notes: (Same as: Sublimaze) Preservative free. Start Date: 06/16/14 Stop Date: 06/16/14 Status: Discontinued flumazenil 0.2 mg, 2 mL, Route: IVP, Drug form: INJ, PRN, Dosing Weight 102.727, kg, PRN Be nzodiazepine Reversal, Initial dose, Start date: 06/16/14 8:15:00, Duration: 30 day, Stop date: 07/16/14 8:14:00 Notes: (Same as: Romazicon) Start Date: 06/16/14 Stop Date: 06/16/14 Status: Discontinued glycopyrrolate 0.2 mg, 1 mL, Route: IVP, Drug form: INJ, Q5Min, Dosing Weight 102.727, kg, PRN Bradycardia, Start date: 06/16/14 8:15:00, Duration: 3 doses or times, Stop date : Limited # of times Notes: (Same as: Robinul) Start Date: 06/16/14 Stop Date: 06/16/14 Status: Discontinued hydrALAZINE 10 mg, 0.5 mL, Route: IVP, Drug form: INJ, Q20Min, Dosing Weight 102.727, kg, AR N Elevated BP, Start date: 06/16/14 8:15:00, Duration: 2 doses or times, Stop da te: Limited # of times Notes: (Same as: Apresoline)Push over 5 minutes Start Date: 06/16/14 Stop Date: 06/16/14 Status: Discontinued hydromorphone 0.5 mg, 0.25 mL, Route: IVP, Drug form: INJ, Q5Min, Dosing Weight 102.727, kg, P RN Pain Score 7-10, Start date: 06/16/14 8:15:00, Duration: 4 doses or times, St op date: Limited # of times Notes: Same as: Dilaudid Start Date: 06/16/14 Stop Date: 06/16/14 Status: Discontinued INVanz + Sodium Chloride 0.9% IV 100 mL 1 gm, Route: IVPB, Drug form: INJ, CFCS96P, Dosing Weight 48.182, kg, Start date : 06/16/14 3:00:00, Duration: 30 day, Stop date: 07/15/14 3:00:00 Notes: (Same as: INVanz) Refrigerate. NOT COMPATIBLE WITH D5W. Stable in refri gerator for 24 hours. Start Date: 06/16/14 Stop Date: 06/17/14 Status: Discontinued labetalol 10 mg, 2 mL, Route: IVP, Drug form: INJ, Q5Min, Dosing Weight 102.727, kg, PRN E levated BP, Start date: 06/16/14 8:15:00, Duration: 5 doses or times, Stop date: Limited # of times Start Date: 06/16/14 Stop Date: 06/16/14 Status: Discontinued Lactated Ringers Injection IV 500 mL 500 mL, Rate: 125 ml/hr, Infuse over: 4 hr, Route: IV, Dosing Weight 102.727 kg, Total Volume: 500, Start date: 06/16/14 8:15:00, Duration: 30 day, Stop date: 1 09/16/13 8:14:00 Start Date: 06/16/14 Stop Date: 06/16/14 Status: Discontinued Lactated Ringers Injection IV 500 mL 500 mL, Rate: 75 ml/hr, Infuse over: 6.7 hr, Route: IV, Dosing Weight 102.727 kg , Total Volume: 500, Start date: 06/16/14 7:57:00, Duration: 30 day, Stop date: 07/16/14 7:56:00 Start Date: 06/16/14 Stop Date: 06/17/14 Status: Discontinued Lactated Ringers IV 1,000 mL 1,000 mL, Rate: 100 ml/hr, Infuse over: 10 hr, Route: IV, Dosing Weight 48.182 k g, Total Volume: 1,000, Start date: 06/16/14 2:43:00, Duration: 30 day, Stop bridgett e: 07/16/14 2:42:00 Start Date: 06/16/14 Stop Date: 06/16/14 Status: Discontinued Lactated Ringers IV 500 mL 500 mL, Rate: 40 ml/hr, Infuse over: 12.5 hr, Route: IV, Dosing Weight 48.182 kg , Total Volume: 500, Start date: 06/16/14 5:10:00, Duration: 30 day, Stop date: 07/16/14 5:09:00 Start Date: 06/16/14 Stop Date: 06/16/14 Status: Discontinued Lexapro 20 mg oral tablet 20 mg, PO, Bedtime, Pain Score 1-5, # 30 tab, 0 Refill(s) Start Date: 06/16/14 Status: Ordered Lodine 300 mg oral capsule 500 mg, PO, BID, 0 Refill(s) Start Date: 06/16/14 Status: Ordered Lovenox 40 mg, 0.4 mL, Route: SUB-Q, Drug form: INJ, Q24H, Dosing Weight 102.727, kg, St art date: 06/17/14 7:00:00, Duration: 30 day, Stop date: 07/16/14 7:00:00 Notes: (Same as: Lovenox) Start Date: 06/17/14 Stop Date: 06/17/14 Status: Discontinued morphine Sulfate 2 mg, 1 mL, Route: IVP, Drug form: INJ, Q5Min, Dosing Weight 102.727, kg, PRN Pa in Score 4-6, Start date: 06/16/14 8:15:00, Duration: 5 doses or times, Stop bridgett e: Limited # of times Notes: (Same as:MORPhine Sulfate) Start Date: 06/16/14 Stop Date: 06/16/14 Status: Discontinued morphine Sulfate 4 mg, 1 mL, Route: IV, Drug form: INJ, Q2H, Dosing Weight 48.182, kg, PRN Pain, Start date: 06/16/14 2:47:00, Duration: 30 day, Stop date: 07/16/14 2:46:00, Sev ere pain 7-10 Notes: (Same as:MORPhine Sulfate) Start Date: 06/16/14 Stop Date: 06/16/14 Status: Discontinued morphine Sulfate 2 mg, 1 mL, Route: IV, Drug form: INJ, Q2H, Dosing Weight 48.182, kg, PRN Pain, Start date: 06/16/14 2:47:00, Duration: 30 day, Stop date: 07/16/14 2:46:00, Mil d pain 3-6 Notes: (Same as:MORPhine Sulfate) Start Date: 06/16/14 Stop Date: 06/16/14 Status: Discontinued morphine Sulfate 2 mg, 1 mL, Route: IVP, Drug form: INJ, Q2H, Dosing Weight 102.727, kg, PRN Pain Score 4-6, Start date: 06/16/14 7:57:00, Duration: 30 day, Stop date: 07/16/14 7:56:00 Notes: (Same as:MORPhine Sulfate) Start Date: 06/16/14 Stop Date: 06/17/14 Status: Discontinued naloxone 0.1 mg, 0.25 mL, Route: SUB-Q, Drug form: INJ, Q6H, Dosing Weight 102.727, kg, P RN Itching, Start date: 06/16/14 8:15:00, Duration: 30 day, Stop date: 07/16/14 8:14:00 Notes: Same as Narcan Start Date: 06/16/14 Stop Date: 06/16/14 Status: Discontinued naloxone 0.04 mg, 0.1 mL, Route: IVP, Drug form: INJ, Q2MIN, Dosing Weight 102.727, kg, P RN Narcotic Reversal, Start date: 06/16/14 8:15:00, Duration: 8 doses or times, Stop date: Limited # of times Notes: Same as Narcan Start Date: 06/16/14 Stop Date: 06/16/14 Status: Discontinued ondansetron 4 mg, Route: IVP, ONCE, Dosing Weight 102.727, kg, PRN Nausea & Vomiting, Start date: 06/16/14 8:15:00 Start Date: 06/16/14 Stop Date: 06/16/14 Status: Completed ondansetron 4 mg, 2 mL, Route: IVP, Drug form: INJ, Q6H, Dosing Weight 102.727, kg, PRN Naus ea & Vomiting, Start date: 06/16/14 7:57:00, Duration: 30 day, Stop date: 07/16/14 7:56:00 Notes: (Same as: Zofran) Start Date: 06/16/14 Stop Date: 06/17/14 Status: Discontinued oxyCODONE 10 mg, 2 tab, Route: PO, Drug form: TAB, Q4H, Dosing Weight 102.727, kg, PRN Melania n Score 7-10, Start date: 06/16/14 8:15:00, Duration: 30 day, Stop date: 4 8:14:00 Notes: (Same as: Roxicodone) Start Date: 06/16/14 Stop Date: 06/16/14 Status: Discontinued oxyCODONE 5 mg, 1 tab, Route: PO, Drug form: TAB, Q4H, Dosing Weight 102.727, kg, PRN Pain Score 4-6, Start date: 06/16/14 8:15:00, Duration: 30 day, Stop date: 07/16/14 8:14:00 Notes: (Same as: Roxicodone) Start Date: 06/16/14 Stop Date: 06/16/14 Status: Discontinued promethazine 6.25 mg, 25 mL, Route: IVPB, Drug form: SOLN, ONCE, Dosing Weight 102.727, kg, P RN Nausea & Vomiting, Start date: 06/16/14 8:15:00 Start Date: 06/16/14 Stop Date: 06/16/14 Status: Discontinued racepinephrine 11.25 mg, 0.5 mL, Route: NEB, Drug Form: SOLN, Dosing Weight 102.727, kg, PRN, P RN Shortness of breath, Start date: 06/16/14 8:15:00, Duration: 30 day, Stop bridgett e: 07/16/14 8:14:00 Notes: (racepinephrine *2.25% inh 0.5ml SOLN) (Same as:S2) Start Date: 06/16/14 Stop Date: 06/16/14 Status: Discontinued simvastatin 40 mg oral tablet 500 mg=, PO, Bedtime, # 30 tab, 0 Refill(s) Start Date: 06/16/14 Status: Ordered temazepam 7.5 mg, 1 cap, Route: PO, Drug form: CAP, Bedtime, Dosing Weight 102.727, kg, AR N Insomnia, Start date: 06/16/14 7:57:00, Duration: 30 day, Stop date: 07/16/14 7:56:00 Notes: (Same As: Restoril) Start Date: 06/16/14 Stop Date: 06/17/14 Status: Discontinued Tylenol with Codeine #3 oral tablet 1 tab, PO, Q6H, for pain, # 30 tab, 0 Refill(s) Start Date: 06/17/14 Status: Ordered Zofran 4 mg, 2 mL, Route: IV, Drug form: INJ, Q8H, Dosing Weight 48.182, kg, PRN as nee ded for nausea/vomiting, Start date: 06/16/14 2:47:00, Duration: 30 day, Stop da te: 07/16/14 2:46:00 Notes: (Same as: Araceli) Start Date: 06/16/14 Stop Date: 06/16/14 Status: Discontinued Results HEMATOLOGY Most recent to 1 oldest [Reference Range]: WBC [3.7-10.4 K/CMM] 8.5 K/CMM (06/17/14 3:12 AM) RBC [4.20-5.40 3.77 M/CMM M/CMM] *LOW* (06/17/14 3:12 AM) Hgb [12.0-16.0 g/dL] 11.0 g/dL *LOW* (06/17/14 3:12 AM) Hct [36.0-48.0 %] 34.2 % *LOW* (06/17/14 3:12 AM) MCV [80.0-98.0 fL] 90.9 fL (06/17/14 3:12 AM) MCH [27.0-31.0 pg] 29.3 pg (06/17/14 3:12 AM) MCHC [32.0-36.0 32.2 g/dL g/dL] (06/17/14 3:12 AM) RDW [11.5-14.5 %] 14.5 % (06/17/14 3:12 AM) Platelet [133-450 174 K/CMM K/CMM] (06/17/14 3:12 AM) MPV [7.4-10.4 fL] 8.8 fL (06/17/14 3:12 AM) Segs [45.0-75.0 %] 77.0 % *HI* (06/17/14 3:12 AM) Lymphocytes 16.0 % [20.0-40.0 %] *LOW* (06/17/14 3:12 AM) Monocytes [2.0-12.0 6.7 % %] (06/17/14 3:12 AM) Eosinophils [0.0-4.0 0.2 % %] (06/17/14 3:12 AM) Basophils [0.0-1.0 0.1 % %] (06/17/14 3:12 AM) Segs-Bands # 6.6 K/CMM [1.5-8.1 K/CMM] (06/17/14 3:12 AM) Lymphocytes # 1.4 K/CMM [1.0-5.5 K/CMM] (06/17/14 3:12 AM) Monocytes # [0.0-0.8 0.6 K/CMM K/CMM] (06/17/14 3:12 AM) Eosinophils # 0.0 K/CMM [0.0-0.5 K/CMM] (06/17/14 3:12 AM) Basophils # [0.0-0.2 0.0 K/CMM K/CMM] (06/17/14 3:12 AM) Medications Administered During Your Visit No data available for this section Immunizations No data available for this section Social History Social History Type Response Alcohol Use: Current, Type: Wine, Frequency: 1-2 times per month Smoking Status Current every day smoker, Previous treatment: None, Ready to change: Yes, Concerns about tobacco use in household: No, Exposure to Tobacco Smoke None, Cigarette Smoking Last 365 Days No, Reg Smoking Cessation Counseling No Assessment and Plan Extracted from: Title: Clinical Document Author: Kaiser Saldivar MD Date: 06/16/14 Post Operative Procedure Note A complete detailed Operative Report must follow within 24 hours of the procedure. Pre-Operative Diagnosis: Acute appendicitis Post-Operative Diagnosis: same Surgeon/Endoscopist/Physician(s): Janna Pillowcase Cleaner(s): none Procedure Performed: lap appy Estimated Blood Loss: min Specimens Removed: appendix Findings of the Procedure: as above Dictation ID for complete detailed Operative Report:: Anesthesia:gen/local
--- OUTSIDE RECORDS SUMMARY | 2019-03-10 10:05 | XMS REPORT | Summary of Care ---
Author Author [facility] Organization [facility] Address Unknown Phone Unavailable Encounter KATEY Thompson(CARL) [id number] Date(s): 03/04/17 - 03/06/17 [facility] [address] [place] [address]- Discharge Disposition: Home or Self Care Attending Physician: Cecilia Austin MD Admitting Physician: Cecilia Austin MD Vital Signs 1 2 3 Most recent to oldest [Reference Range]: 175.26 cm (03/04/17 7:41 PM) 175.26 cm (03/04/17 2:41 PM) Height 98.1 DegF (03/06/17 8:21 AM) 98.7 DegF (03/06/17 4:43 AM) 98.2 DegF (03/06/17 12:07 AM) Temperature Oral [96.4-99.1 DegF] 131/90 mmHg (03/06/17 8:21 AM) 110/72 mmHg (03/06/17 4:43 AM) 124/75 mmHg (03/06/17 12:07 AM) Blood Pressure [90-140/60-90 mmHg] 14 BRMIN (03/06/17 8:21 AM) 20 BRMIN (03/06/17 4:43 AM) 20 BRMIN (03/06/17 12:07 AM) Respiratory Rate [14-20 BRMIN] 69 bpm (03/06/17 8:21 AM) 65 bpm (03/06/17 4:43 AM) 67 bpm (03/06/17 12:07 AM) Peripheral Pulse Rate [60-100 bpm] 114.091 kg (03/04/17 7:41 PM) 112.443 kg (03/04/17 2:41 PM) Weight 37.14 m2 (03/04/17 7:41 PM) 36.61 m2 (03/04/17 2:41 PM) Body Mass Index Problem List Condition Effective Dates Status Health Status Informant Abdominal Active pain(Confirmed) Hearing Resolved difficulty(Confirmed ) Hyperlipemia(Confirm Resolved ed) Arthritis(Confirmed) Resolved Depressed(Confirmed) Resolved Neuropathy(Confirmed Resolved ) Allergies, Adverse Reactions, Alerts Substance Reaction Severity Status NKDA Active Medications acetaminophen 650 mg, 2 tab, Route: PO, Drug form: TAB, Q4H, Dosing Weight 112.443, kg, PRN Pa in 1-3/Temp > 100.4 F, Start date: 03/04/17 16:24:00 CDT, Duration: 30 day, Stop date: 04/03/17 16:23:00 CDT Notes: Do not exceed 4 gm/day. (Same as: Tylenol) Start Date: 03/04/17 Stop Date: 03/06/17 Status: Discontinued aspirin 81 mg, 1 tab, Route: PO, Drug form: ECTAB, Daily, Dosing Weight 112.443, kg, Sta rt date: 03/05/17 9:00:00 CDT, Duration: 30 day, Stop date: 04/03/17 9:00:00 CDT Notes: Do not crush or chew.(Same As: Ecotrin) Start Date: 03/05/17 Stop Date: 03/06/17 Status: Discontinued aspirin 81 mg, PO, Daily, 0 Refill(s) Start Date: 03/04/17 Status: Ordered aspirin 325 mg, 1 tab, Route: PO, Drug form: TAB, ONCE, Dosing Weight 112.443, kg, Prior ity: STAT, Start date: 03/04/17 15:32:00 CDT, Stop date: 03/04/17 15:32:00 CDT Notes: Take with food. Start Date: 03/04/17 Stop Date: 03/04/17 Status: Completed Ceftin 250 mg oral tablet 250 mg=1 tab, PO, BID, X 7 day, # 14 tab, 0 Refill(s) Start Date: 03/06/17 Stop Date: 03/13/17 Status: Ordered docusate 100 mg, 1 cap, Route: PO, Drug form: CAP, BID, Dosing Weight 112.443, kg, Start date: 03/04/17 17:00:00 CDT, Duration: 30 day, Stop date: 04/03/17 9:00:00 CDT Notes: (Same as: Colace) (Do Not Crush) Start Date: 03/04/17 Stop Date: 03/06/17 Status: Discontinued gabapentin 300 mg oral capsule 300 mg, 1 cap, Route: PO, Drug form: CAP, BID, Dosing Weight 112.443, kg, Start date: 03/04/17 17:00:00 CDT, Duration: 30 day, Stop date: 04/03/17 9:00:00 CDT Notes: (Same as: Neurontin) Start Date: 03/04/17 Stop Date: 03/06/17 Status: Discontinued gabapentin 300 mg oral capsule 300 mg=1 cap, PO, BID, # 90 cap, 1 Refill(s) Start Date: 03/04/17 Status: Ordered Lexapro 20 mg, 2 tab, Route: PO, Drug form: TAB, Bedtime, Dosing Weight 114.091, kg, PRN Pain Score 1-5, Start date: 03/06/17 1:03:00 CDT, Duration: 30 day, Stop date: 04/05/17 1:02:00 CDT Notes: (Same as: Lexapro) Start Date: 03/06/17 Stop Date: 03/06/17 Status: Discontinued NS (Bolus) IV 1,000 mL, 1,000 ml/hr, Infuse Over: 1 hr, Route: IV, 1,000, Drug form: INJ, ONCE , Priority: STAT, Dosing Weight 112.443 kg, Start date: 03/04/17 15:27:00 CDT, D uration: 1 doses or times, Stop date: 03/04/17 15:27:00 CDT Start Date: 03/04/17 Stop Date: 03/04/17 Status: Completed ondansetron 4 mg, 2 mL, Route: IVP, Drug form: INJ, Q6H, Dosing Weight 112.443, kg, PRN Naus ea & Vomiting, Start date: 03/04/17 16:24:00 CDT, Duration: 30 day, Stop date: 04/03/17 16:23:00 CDT Notes: (Same as: Araceli) MEDICATION WASTE Product Size: 4 mgProduct Was [place]: ___ mg Start Date: 03/04/17 Stop Date: 03/06/17 Status: Discontinued pneumococcal 23-valent vaccine 0.5 mL, Route: IM, Drug Form: INJ, Daily, Start date: 03/05/17 9:00:00 CDT, Dura tion: 1 doses or times, Stop date: 03/05/17 9:00:00 CDT Notes: (Same as: Pneumovax 23) Refrigerate Start Date: 03/05/17 Stop Date: 03/05/17 Status: Completed Pneumovax 23 0.5 mL, Route: IM, Drug Form: INJ, Daily, Start date: 03/05/17 11:00:00 CDT, Dur ation: 1 doses or times, Stop date: 03/05/17 11:00:00 CDT Notes: (Same as: Pneumovax 23) Refrigerate Start Date: 03/05/17 Stop Date: 03/05/17 Status: Completed Rocephin + sodium chloride 0.9% INJ 100 mL 1 gm, Route: IVPB, [id number], Dosing Weight 114.091, kg, Start date: 03/05/17 16:0 0:00 CDT, Duration: 3 day, Stop date: 03/07/17 16:00:00 CDT, ABX Indication: Oth er (specify in Comments) Notes: (Same As: Rocephin).Use with 100 mL NS and infuse over 30 min MEDICA TION WASTE Product Size: 1000 mgProduct Wasted: ___ mg Start Date: 03/05/17 Stop Date: 03/06/17 Status: Discontinued Saline Flush 0.9% 10 mL, Route: IVP, Drug Form: INJ, Dosing Weight 112.443, kg, PRN, PRN Line Flus h, Start date: 03/04/17 14:44:00 CDT, Duration: 30 day, Stop date: 04/03/17 14:4 3:00 CDT Notes: Same as: BD Posiflush Sterile Start Date: 03/04/17 Stop Date: 03/06/17 Status: Discontinued simvastatin 10 mg, 2 tab, Route: PO, Drug form: TAB, Bedtime, Dosing Weight 112.443, kg, Sta rt date: 03/04/17 21:00:00 CDT, Duration: 30 day, Stop date: 04/02/17 21:00:00 C DT Notes: (Same as: Zocor) Start Date: 03/04/17 Stop Date: 03/06/17 Status: Discontinued tramadol 50 mg oral tablet 50 mg, 1 tab, Route: PO, Drug form: TAB, Q6H, Dosing Weight 112.443, kg, PRN Melania n Score 1-3, Start date: 03/04/17 16:34:00 CDT, Duration: 30 day, Stop date: 16:33:00 CDT Notes: Not to exceed 400mg/day. (Same As: Ultram) Start Date: 03/04/17 Stop Date: 03/06/17 Status: Discontinued Results ELECTROLYTES 1 2 3 Most recent to oldest [Reference Range]: 142 mEq/L (03/05/17 3:54 AM) 142 mEq/L (03/04/17 3:15 PM) Sodium Lvl [135-145 mEq/L] 4.3 mEq/L (03/05/17 3:54 AM) 4.0 mEq/L (03/04/17 3:15 PM) Potassium Lvl [3.5-5.1 mEq/L] 109 mEq/L (03/05/17 3:54 AM) 110 mEq/L *HI* (03/04/17 3:15 PM) Chloride Lvl [95-109 mEq/L] 26 mEq/L (03/05/17 3:54 AM) 24 mEq/L (03/04/17 3:15 PM) CO2 [24-32 mEq/L] 11.3 mEq/L (03/05/17 3:54 AM) 12.0 mEq/L (03/04/17 3:15 PM) AGAP [10.0-20.0 mEq/L] 143 mEq/L (03/04/17 2:49 PM) POC Sodium [135-145 mEq/L] 4.0 mEq/L (03/04/17 2:49 PM) POC Potassium [3.5-5.1 mEq/L] 108 mEq/L (03/04/17 2:49 PM) POC Chloride [95-109 mEq/L] 24 mEq/dL (03/04/17 2:49 PM) POC Carbon Dioxide [24-32 mEq/dL] 16.0 mEq/L (03/04/17 2:49 PM) POC AGAP [10.0-20.0 mEq/L] CHEM PANEL 1 2 3 Most recent to oldest [Reference Range]: 0.85 mg/dL (03/05/17 3:54 AM) 1.06 mg/dL (03/04/17 3:15 PM) Creatinine Lvl [0.50-1.40 mg/dL] 77 mL/min/1.73m2 1 *NA* (03/05/17 3:54 AM) 58 mL/min/1.73m2 2 *NA* (03/04/17 3:15 PM) 63 mL/min/1.73m2 3 *NA* (03/04/17 2:49 PM) eGFR 19 mg/dL (03/05/17 3:54 AM) 22 mg/dL (03/04/17 3:15 PM) BUN [7-22 mg/dL] 22 (03/05/17 3:54 AM) 21 (03/04/17 3:15 PM) B/C Ratio [6-25] 91 mg/dL (03/05/17 3:54 AM) 110 mg/dL *HI* (03/04/17 3:15 PM) Glucose Lvl [70-99 mg/dL] 1.0 mg/dL (03/04/17 2:49 PM) POC Creatinine [0.5-1.4 mg/dL] 24 mg/dL *HI* (03/04/17 2:49 PM) POC BUN [7-22 mg/dL] 114 mg/dL *HI* (03/04/17 2:49 PM) POC Glucose [70-99 mg/dL] 7.1 g/dL (03/05/17 3:54 AM) 7.4 g/dL (03/04/17 3:15 PM) Total Protein [6.4-8.4 g/dL] 3.3 g/dL *LOW* (03/05/17 3:54 AM) 3.4 g/dL *LOW* (03/04/17 3:15 PM) Albumin Lvl [3.5-5.0 g/dL] 3.8 g/dL (03/05/17 3:54 AM) 4.0 g/dL (03/04/17 3:15 PM) Globulin [2.7-4.2 g/dL] 0.9 (03/05/17 3:54 AM) 0.8 (03/04/17 3:15 PM) A/G Ratio [0.7-1.6] 9.9 mg/dL (03/05/17 3:54 AM) 10.1 mg/dL (03/04/17 3:15 PM) Calcium Lvl [8.5-10.5 mg/dL] 1.29 mMol/L *HI* (03/04/17 2:49 PM) POC Ion Ca [1.05-1.25 mMol/L] 22 unit/L (03/05/17 3:54 AM) 19 unit/L (03/04/17 3:15 PM) ALT [0-65 unit/L] 16 unit/L (03/05/17 3:54 AM) 19 unit/L (03/04/17 3:15 PM) AST [0-37 unit/L] 84 unit/L (03/05/17 3:54 AM) 86 unit/L (03/04/17 3:15 PM) Alk Phos [39-136 unit/L] 0.4 mg/dL (03/05/17 3:54 AM) 0.5 mg/dL (03/04/17 3:15 PM) Bili Total [0.2-1.3 mg/dL] 1Result Comment: The eGFR is calculated using the [...] from the National Kid[employer] Disease Education Program ( NKDEP) which additionally recommends that when the eGFR is used in patients with extremes of body mass index for purposes of drug dosing, the eGFR should be mul tiplied by the estimated BMI. 2Result Comment: The eGFR is calculated using the [...] from the National Kid[employer] Education Program ( NKDEP) which additionally recommends that when the eGFR is used in patients with extremes of body mass index for purposes of drug dosing, the eGFR should be mul tiplied by the estimated BMI. 3Result Comment: The eGFR is calculated using the [...] from the National Kid[employer] Disease Education Program ( NKDEP) which additionally recommends that when the eGFR is used in patients with extremes of body mass index for purposes of drug dosing, the eGFR should be mul tiplied by the estimated BMI. CARDIAC ENZYMES 1 2 3 Most recent to oldest [Reference Range]: 74 unit/L (03/04/17 3:15 PM) Total CK [12-191 unit/L] <1.0 ng/mL (03/04/17 3:15 PM) CK MB [0.5-3.6 ng/mL] <1.4 (03/04/17 3:15 PM) CK MB Index [0.0-2.5] <0.02 ng/mL (03/04/17 3:15 PM) Troponin-I [0.00-0.40 ng/mL] LIPIDS 1 2 3 Most recent to oldest [Reference Range]: 3.05 *LOW* (03/04/17 3:15 PM) CHD Risk [3.90-5.80] 180 mg/dL (03/04/17 3:15 PM) Chol [<=199 mg/dL] 236 mg/dL *HI* (03/04/17 3:15 PM) Trig [<=149 mg/dL] 59 mg/dL *LOW* (03/04/17 3:15 PM) HDL [>=61 mg/dL] 74 mg/dL (03/04/17 3:15 PM) LDL (Calculated) [<=99 mg/dL] 47 *NA* (03/04/17 3:15 PM) VLDL SPECIAL CHEMISTRY 1 2 3 Most recent to oldest [Reference Range]: 6.3 % *HI* (03/04/17 3:15 PM) Hgb A1C [<=5.6 %] URINE AND STOOL 1 2 3 Most recent to oldest [Reference Range]: Clear (03/04/17 7:01 PM) UA Turbidity [Clear] Yellow *NA* (03/04/17 7:01 PM) UA Color [Yellow] 6.5 (03/04/17 7:01 PM) UA pH [5.0-8.0] >=1.050 *ABN* (03/04/17 7:01 PM) UA Spec Grav [<=1.030] Negative mg/dL *NA* (03/04/17 7:01 PM) UA Glucose [Negative mg/dL] Negative (03/04/17 7:01 PM) UA Blood [Negative] Negative mg/dL *NA* (03/04/17 7:01 PM) UA Ketones [Negative mg/dL] 20 mg/dL *ABN* (03/04/17 7:01 PM) UA Protein [Negative mg/dL] <=1.0 mg/dL *NA* (03/04/17 7:01 PM) UA Urobilinogen [0.1-1.0 mg/dL] Moderate *ABN* (03/04/17 7:01 PM) UA Bili [Negative] Large *ABN* (03/04/17 7:01 PM) UA Leuk Est [Negative] Positive *ABN* (03/04/17 7:01 PM) UA Nitrite [Negative] 20 /HPF *HI* (03/04/17 7:01 PM) UA WBC [0-5 /HPF] 4 /HPF *HI* (03/04/17 7:01 PM) UA RBC [0-2 /HPF] Few /LPF *NA* (03/04/17 7:01 PM) UA Sq Epi [Few /LPF] Few /LPF *NA* (03/04/17 7:01 PM) UA Mucus [None Seen /LPF] HEMATOLOGY 1 2 3 Most recent to oldest [Reference Range]: 10.9 K/CMM *HI* (03/05/17 3:54 AM) 10.3 K/CMM (03/04/17 3:15 PM) WBC [3.7-10.4 K/CMM] 4.78 M/CMM (03/05/17 3:54 AM) 4.90 M/CMM (03/04/17 3:15 PM) RBC [4.20-5.40 M/CMM] 13.3 g/dL (03/05/17 3:54 AM) 13.5 g/dL (03/04/17 3:15 PM) Hgb [12.0-16.0 g/dL] 40.6 % (03/05/17 3:54 AM) 41.6 % (03/04/17 3:15 PM) Hct [36.0-48.0 %] 85.0 fL (03/05/17 3:54 AM) 84.9 fL (03/04/17 3:15 PM) MCV [80.0-98.0 fL] 27.8 pg (03/05/17 3:54 AM) 27.6 pg (03/04/17 3:15 PM) MCH [27.0-31.0 pg] 32.7 g/dL (03/05/17 3:54 AM) 32.6 g/dL (03/04/17 3:15 PM) MCHC [32.0-36.0 g/dL] 15.2 % *HI* (03/05/17 3:54 AM) 15.5 % *HI* (03/04/17 3:15 PM) RDW [11.5-14.5 %] 263 K/CMM (03/05/17 3:54 AM) 297 K/CMM (03/04/17 3:15 PM) Platelet [133-450 K/CMM] 9.2 fL (03/05/17 3:54 AM) 9.0 fL (03/04/17 3:15 PM) MPV [7.4-10.4 fL] 15.3 g/dL (03/04/17 2:49 PM) POC Hemoglobin [12.0-16.0 g/dL] 45.0 % (03/04/17 2:49 PM) POC Hematocrit [36.0-48.0 %] 69.3 % (03/05/17 3:54 AM) 69.9 % (03/04/17 3:15 PM) Segs [45.0-75.0 %] 22.6 % (03/05/17 3:54 AM) 21.1 % (03/04/17 3:15 PM) Lymphocytes [20.0-40.0 %] 6.5 % (03/05/17 3:54 AM) 8.0 % (03/04/17 3:15 PM) Monocytes [2.0-12.0 %] 1.2 % (03/05/17 3:54 AM) 0.7 % (03/04/17 3:15 PM) Eosinophils [0.0-4.0 %] 0.4 % (03/05/17 3:54 AM) 0.3 % (03/04/17 3:15 PM) Basophils [0.0-1.0 %] 7.5 K/CMM (03/05/17 3:54 AM) 7.2 K/CMM (03/04/17 3:15 PM) Segs-Bands # [1.5-8.1 K/CMM] 2.5 K/CMM (03/05/17 3:54 AM) 2.2 K/CMM (03/04/17 3:15 PM) Lymphocytes # [1.0-5.5 K/CMM] 0.7 K/CMM (03/05/17 3:54 AM) 0.8 K/CMM (03/04/17 3:15 PM) Monocytes # [0.0-0.8 K/CMM] 0.1 K/CMM (03/05/17 3:54 AM) 0.1 K/CMM (03/04/17 3:15 PM) Eosinophils # [0.0-0.5 K/CMM] 12.6 seconds (03/04/17 3:15 PM) PT [12.0-14.7 seconds] 0.92 (03/04/17 3:15 PM) INR [0.85-1.17] 24.3 seconds (03/04/17 3:15 PM) PTT [22.9-35.8 seconds] Immunizations Given and Recorded Vaccine Date Status Refusal Reason pneumococcal 23-valent vaccine 03/05/17 Given Procedures Procedure Date Related Diagnosis Body Site Appendix operation Cholecystectomy Hysterectomy Laparoscopic sleeve gastrectomy Social History Social History Type Response Substance Abuse Use: None. Alcohol Current, Type Wine. Frequency: 1-2 times per year. Smoking Status Current every day smoker; Previous treatment: None; Ready to change: Yes; Concerns about tobacco use in household: No; Exposure to Tobacco Smoke None; Cigarette Smoking Last 365 Days No; Reg Smoking Cessation Counseling No Assessment and Plan Extracted from: Title: Clinical Document Author: Álvaro Hansen MD Date: 03/06/17 DC Summary dictated # [id number] Extracted from: Title: Neuro Progress Note Author: Glenn Grande DO Date: 03/05/17 Assessment/Plan Patient likely with stroke currently pending MRI. Will treat with antiplatelet medication. She has had multiple strokes in the past that she did not know aboutrecommend stop smoking. Acute UTI Cerebral infarction due to thrombosis of left middle cerebral artery Ordered: [id number] [facility] Hospital Care/Day 25 Minutes, 03/05/17 18:07:00 CDT, 24 hr [id number] Initial Inpatient Consult New/Estab Pt 80 Min, 03/04/17 20:57:00 CDT, 24 hr Slurred speech Ordered: [id number] [facility] Hospital Care/Day 25 Minutes, 03/05/17 18:07:00 CDT, 24 hr Extracted from: Title: Neurologic consult Author: Glenn Grande DO Date: [...] and statin therapy. Recommend stop smoking. Extracted from: Title: General Admission H&P * Author: Cecilia Austin [...]
[2019-03-10 13:40] VITALS: BP 118/81
== END | disposition home or self-care (01) ==
LOC: OR 10:01
PROVIDERS: ATTEND Ophthalmology
DX: H25.11 Age-related nuclear cataract, right eye (principal); H91.90 Unspecified hearing loss, unspecified ear; M46.89 Other specified inflammatory spondylopathies, multiple sites in spine; E78.5 Hyperlipidemia, unspecified; F32.9 Major depressive disorder, single episode, unspecified; F17.210 Nicotine dependence, cigarettes, uncomplicated; Z79.82 Long term (current) use of aspirin; Z86.73 Personal history of transient ischemic attack (TIA), and cerebral infarction without residual deficits
CPT/HCPCS: 66984; J2250; J3010; V2787

== ENCOUNTER → 2019-03-24 | Day surgery (SDC) | payer OTHER ==
--- OUTSIDE RECORDS SUMMARY | 2019-03-24 12:18 | XMS REPORT | Clinical Summary ---
Author Author [facility] Organization [facility] Address Unknown Phone Unavailable Care Team Providers Care Scale Expert Name Role Phone Gabe Cole MD PCP Allergies No Known Allergies Medications End Date Status Medication Sig Dispensed Refills Start Date Active aspirin (ECOTRIN) 81 MG Take 81 mg by 0 enteric coated tablet mouth. 01/19/2020 Active etodolac (LODINE) 500 MG Take 1 tablet 180 tablet 0 tablet (500 mg 9 total) by mouth 2 (two) times a day. 01/19/2020 Active escitalopram (LEXAPRO) 20 Take 1 tablet 90 tablet 0 01/19/201 MG tablet (20 mg total) 9 by mouth every morning. 01/19/2020 Active atorvastatin (LIPITOR) 20 Take 1 tablet 90 tablet 0 01/19/201 MG tablet (20 mg total) 9 by mouth nightly. 05/06/2019 Active gabapentin (NEURONTIN) Take 1 90 capsule 0 300 mg capsule capsule (300 9 mg total) by mouth daily for 90 days. 04/11/2018 atorvastatin (LIPITOR) 20 Take 1 tablet 14 tablet 0 03/28/201 MG tablet (20 mg total) 8 by mouth daily for 14 days. Default OP ins 04/10/2018 Discontinued (Reorder) escitalopram (LEXAPRO) 20 Take 20 mg by 0 MG tablet mouth. 04/10/2018 Discontinued (Reorder) atorvastatin (LIPITOR) 20 Take 20 mg by 0 MG tablet mouth. 04/10/2018 Discontinued (Reorder) etodolac (LODINE) 500 MG Take 500 mg 0 tablet by mouth. 04/10/2018 Discontinued (Reorder) gabapentin (NEURONTIN) Take 600 mg 0 600 mg tablet by mouth. 06/30/2018 Discontinued (Reorder) atorvastatin (LIPITOR) 20 Take 1 tablet 90 tablet 0 04/10/201 MG tablet (20 mg total) 8 by mouth daily. 06/30/2018 Discontinued (Reorder) escitalopram (LEXAPRO) 20 Take 1 tablet 90 tablet 0 MG tablet (20 mg total) 8 by mouth every morning. 06/30/2018 Discontinued (Reorder) etodolac (LODINE) 500 MG Take 1 tablet 180 tablet 0 tablet (500 mg 8 total) by mouth 2 (two) times a day. 06/30/2018 Discontinued (Reorder) gabapentin (NEURONTIN) Take 1 tablet 90 tablet 0 600 mg tablet (600 mg 8 total) by mouth daily. 10/06/2018 Discontinued (Reorder) atorvastatin (LIPITOR) 20 Take 1 tablet 90 tablet 0 MG tablet (20 mg total) 8 by mouth daily. 10/06/2018 Discontinued (Reorder) escitalopram (LEXAPRO) 20 Take 1 tablet 90 tablet 0 MG tablet (20 mg total) 8 by mouth every morning. 10/06/2018 Discontinued (Reorder) etodolac (LODINE) 500 MG Take 1 tablet 180 tablet 0 tablet (500 mg 8 total) by mouth 2 (two) times a day. 10/06/2018 Discontinued gabapentin (NEURONTIN) Take 1 tablet 90 tablet 0 600 mg tablet (600 mg 8 total) by mouth daily. 07/10/2018 brompheniramine-pseudoeph Take 5 mL by 120 mL 1 -DM 2-30-10 mg/5 mL syrup mouth 4 8 (four) times a day as needed for allergies for up to 10 days. 07/10/2018 doxycycline (VIBRAMYCIN) Take 1 20 capsule 0 100 MG capsule capsule (100 8 mg total) by mouth 2 (two) times a day for 10 days. 01/19/2019 Discontinued (Reorder) etodolac (LODINE) 500 MG Take 1 tablet 180 tablet 0 tablet (500 mg 9 total) by mouth 2 (two) times a day. 01/19/2019 Discontinued (Reorder) escitalopram (LEXAPRO) 20 Take 1 tablet 90 tablet 0 MG tablet (20 mg total) 9 by mouth every morning. 01/19/2019 Discontinued (Reorder) atorvastatin (LIPITOR) 20 Take 1 tablet 90 tablet 0 MG tablet (20 mg total) 9 by mouth daily. 02/05/2019 Discontinued (Reorder) gabapentin (NEURONTIN) Take 1 90 capsule 0 300 mg capsule capsule (300 9 mg total) by mouth daily. 10/25/2018 mupirocin (BACTROBAN) 2 % into each 10 g 0 nasal ointment nostril 2 9 (two) times a day for 5 days. Use one-half of tube in each nostril twice daily for five (5) days and gently massage. 02/11/2019 Discontinued (Reorder) traZODone (DESYREL) 100 Take 1 tablet 30 tablet 1 MG tablet (100 mg 9 total) by mouth nightly for 30 days. 03/13/2019 traZODone (DESYREL) 100 Take 1 tablet 90 tablet 0 MG tablet (100 mg 9 total) by mouth nightly for 30 days. Active Problems No known active problems Encounters Care Team Description Date Type Specialty Gabe Cole MD Age-related cataract of both eyes, unspecified age-related cataract type (Primary Dx); Preoperative clearance 02/18/2019 Office Visit Gabe Renner MD 02/11/2019 Refill Gabe Renner MD 02/05/2019 Refill Gabe Renner MD Primary osteoarthritis of right knee (Primary Dx); Mixed hyperlipidemia; Mild single current episode of major depressive disorder (HCC) 01/19/2019 Office Visit Gabe Renner MD Primary osteoarthritis of right knee (Primary Dx); Preop examination; Mixed hyperlipidemia 10/16/2018 Office Visit Gabe Renner MD 10/13/2018 Telephone Gabe Renner MD Mixed hyperlipidemia (Primary Dx); Arthritis; Mild single current episode of major depressive disorder (HCC) 10/06/2018 Office Visit Gabe Renner MD Viral upper respiratory tract infection (Primary Dx); Mixed hyperlipidemia; Arthritis; Mild single current episode of major depressive disorder (HCC) 06/30/2018 Office Visit Gabe Renner MD Need for influenza vaccination (Primary Dx); Essential hypertension; Arthritis; Mild single current episode of major depressive disorder 04/10/2018 Office Visit Family Medicine Gabe Cole MD 03/28/2018 Telephone Family Medicine after 03/23/2018 Immunizations Name Administration Dates Next Due FLUZONE QUAD PF 04/10/2018 Family History Medical History Relation Name Comments Alzheimer's disease Father Arthritis Father Pancreatic cancer Mother Relation Name Status Comments Father Mother Social History Date Tobacco Use Types Packs/Day Years Used Current Every Day Smoker Cigarettes 1 Smokeless Tobacco: Never Used Drinks/Week oz/Week Comments Alcohol Use seldom Yes Sex Assigned at Date Recorded Not on file Industry Job Start Date Occupation Not on file Not on file Not on file Travel End Travel History Travel Start No recent travel history available. Last Filed Vital Signs Reading Time Taken Comments Vital Sign 114/73 02/18/2019 8:59 AM CDT Blood Pressure 64 02/18/2019 8:59 AM CDT Pulse 36.8 C (98.3 F) 02/18/2019 8:59 AM CDT Temperature 16 02/18/2019 8:59 AM CDT Respiratory Rate 96% 02/18/2019 8:59 AM CDT Oxygen Saturation - - Inhaled Oxygen Concentration 102 kg (224 lb) 02/18/2019 8:59 AM CDT Weight 174 cm (5' 8.5") 02/18/2019 8:59 AM CDT Height 33.56 02/18/2019 8:59 AM CDT Body Mass Index Plan of Treatment Health Maintenance Due Date Last Done Comments CERVICAL CANCER SCREENING 1980 BREAST CANCER SCREENING 2009 COLONOSCOPY SCREENING 2009 SHINGLES VACCINES (#1) 2009 INFLUENZA VACCINE 02/19/2019 04/10/2018 Procedures Comments Procedure Name Priority Date/Time Associated Diagnosis CBC WITH PLATELET AND Routine 02/18/2019 Preoperative clearance DIFFERENTIAL 9:20 AM CDT ECG 12-LEAD Routine 02/18/2019 Preoperative clearance 9:09 AM CDT MRSA SCREEN CULTURE Routine 10/16/2018 Preop examination 9:25 AM CDT TSH REFLEX TO T4F Routine 10/16/2018 8:47 AM CDT LIPID PANEL Routine 10/16/2018 8:47 AM CDT COMPREHENSIVE METABOLIC Routine 10/16/2018 Primary osteoarthritis of PANEL 8:47 AM CDT right knee Preop examination CBC WITH PLATELET AND Routine 10/16/2018 Primary osteoarthritis of DIFFERENTIAL 8:47 AM CDT right knee Preop examination ECG 12-LEAD Routine 10/16/2018 Preop examination 8:18 AM CDT after 03/23/2018 Results * CBC with platelet and differential (02/18/2019 9:20 AM CDT) Only the most recent of 2 results within the time period is included. WBC 7.6 3.8 - 10.8 [facility]L [facility] [place] RBC 4.80 3.80 - 5.10 [facility] Million/uL [facility] [place] HGB 14.5 11.7 - 15.5 g/dL [facility] [employer] [place] HCT 45.0 35.0 - 45.0 % [facility] [place] MCV 93.8 80.0 - 100.0 fL [facility] [place] MCH 30.2 27.0 - 33.0 pg [facility] [place] MCHC 32.2 32.0 - 36.0 g/dL [facility] [place] RDW 13.0 11.0 - 15.0 % [facility] [place] Platelet count 221 140 - 400 [facility] Thousand/uL [facility] [place] MPV 11.1 7.5 - 12.5 fL [facility] [employer] [place] Neutrophils, 4,826 1,500 - 7,800 [facility] absolute cells/uL [facility] [place] Lymphocytes, 1,778 850 - 3,900 cells/uL [facility] absolute [facility] [place] Monocytes, 760 200 - 950 cells/uL [facility] absolute [facility] [place] Eosinophils, 198 15 - 500 cells/uL [facility] absolute [facility] [place] Basophils, 38 0 - 200 cells/uL [facility] absolute [facility] [place] Neutrophils 63.5 % [employer] [place] Lymphocytes 23.4 % [employer] [place] Monocytes 10.0 % [facility] [employer] [place] Eosinophils 2.6 % [facility] [place] Basophils + RC 0.5 % [facility] [employer] [place] Specimen Blood Narrative Performed At FASTING:YES [facility] FASTING: YES Resulting Agency Comment Performing Organization Information: Site ID: [id number] Name: [facility] Address: [address] [place] [id number] Director: Chuck Watt Performing Organization Address City/State/Zipcode Phone Number [employer] [place] [address] [phone] * ECG 12 lead (02/18/2019 9:09 AM CDT) Only the most recent of 2 results within the time period is included. Ventricular 76 [facility] rate Atrial rate 76 [facility] AL interval 146 [facility] QRSD interval 84 [facility] QT interval 390 [facility] QTC interval 438 [facility] P axis 1 46 [facility] QRS axis 1 59 [facility] T wave axis 33 [facility] EKG impression Normal sinus rhythm-Normal [facility] ECG-In automated comparison with ECG of 16-OCT-2018 08:18,-No significant change was found- Specimen Narrative Performed At Performing Organization Address [facility] Phone Number [facility] [address] [place] [address] * MRSA screen culture (10/16/2018 9:25 AM CDT) Pathologist [facility] [place] MRSA screen SEE NOTE (A) [facility] culture isolate Comment: DI[facility]NOSTICS MRSA CULTURE SCREEN [place] MICRO NUMBER:[id number] TEST STATUS: FINAL SPECIMEN SOURCE: NASAL SPECIMEN QUALITY:ADEQUATE RESULT: Methicillin resistant Staphylococcus aureus (MRSA) isolated. Specimen Nares Narrative Performed At FASTING:YES [facility] FASTING: YES Resulting Agency Comment Performing Organization Information: Site ID: [id number] Name: [facility] Address: [address] [place] [id number] Director: Lizabeth Childs Performing Organization Address [facility] Phone Number [employer] [place] [address] [place], [place] [phone] * TSH reflex to T4 (10/16/2018 8:47 AM CDT) Pathologist [facility] [place] TSH reflex to 1.53 0.40 - 4.50 mIU/L [facility] FT4 [employer] [place] Specimen Narrative Performed At FASTING:YES [facility] FASTING: YES Resulting Agency Comment Performing Organization Information: Site ID: [id number] Name: [facility] Address: [address] [place] [phone] Director: Lizabeth Childs Performing Organization Address [facility] Phone Number [facility] [employer] [place] [address] [place] [address] * Lipid panel (10/16/2018 8:47 AM CDT) Cholesterol, 146 <200 mg/dL [facility] total [facility] [place] HDL cholesterol 44 (L) >50 mg/dL [facility] [place] Triglycerides 190 (H) <150 mg/dL [facility] [place] LDL cholesterol 74 mg/dL (calc) [facility] calculated Comment: DI[facility] Reference range: <100 [place] Desirable range <100 mg/dL for primary prevention; <70 mg/dL for patients with CHD or diabetic patients with > or=2 CHD risk factors. LDL-C is now calculated using the Domingo calculation, which is a validated novel method providing better accuracy than the Friedewald equation in the estimation of LDL-C. Damien FUENTES et al. RODNEY. 2013;310(28): 9384-5376 (http://education.[employer]/faq/YGV425) Cholesterol/HDL 3.3 <5.0 (calc) [facility] ratio [facility] [place] Non-HDL 102 <130 mg/dL (calc) [facility] cholesterol Comment: DIAGNOSTICS For patients with diabetes [place] plus 1 major ASCVD risk factor, treating to a non-HDL-C goal of <100 mg/dL (LDL-C of <70 mg/dL) is considered a therapeutic option. Specimen Narrative Performed At FASTING:YES [facility] FASTING: YES Resulting Agency Comment Performing Organization Information: Site ID: [id number] Name: [facility] Address: [address] [place] [id number] Director: Lizabeth Childs Performing Organization Address City/State/Zipcode Phone [place] [address] * Comprehensive metabolic panel (10/16/2018 8:47 AM CDT) Pathologist [facility] [place] Glucose 89 65 - 99 mg/dL [facility] Comment: [facility] Fasting [place] reference interval BUN, whole 18 7 - 25 mg/dL [facility] blood [facility] [place] Creatinine 0.90 0.50 - 1.05 mg/dL [facility] Comment: DI[facility] For patients >49 years of age, [place] the reference limit for Creatinine is approximately 13% higher for people identified as -Cymra[place]. EGFR Non-Afr. 70 > OR=60 [facility] [place] mL/min/1.73m2 [facility] [place] EGFR 81 > OR=60 [facility] [place] mL/min/1.73m2 [facility] [place] BUN/creatinine NOT APPLICABLE 6 - 22 (calc) [facility] ratio [facility] [place] Sodium 141 135 - 146 mmol/L [facility] [place] Potassium 4.3 3.5 - 5.3 mmol/L [facility] [place] Chloride 109 98 - 110 mmol/L [facility] [place] CO2 25 20 - 32 mmol/L [facility] [place] Calcium 10.1 8.6 - 10.4 mg/dL [facility] [place] Protein 6.5 6.1 - 8.1 g/dL [facility] [place] Albumin, S 3.9 3.6 - 5.1 g/dL [facility] [place] Globulin, total 2.6 1.9 - 3.7 g/dL [facility] (calc) [facility] [place] Albumin/globuli 1.5 1.0 - 2.5 (calc) [facility] n ratio [facility] Total bilirubin 0.7 0.2 - 1.2 mg/dL [facility] [place] Alkaline 88 33 - 130 U/L [facility] phosphatase [facility] AST 17 10 - 35 U/L [facility] [place] ALT 12 6 - 29 U/L [facility] [place] Specimen Blood Narrative Performed At FASTING:YES [facility] FASTING: YES Resulting Agency Comment Performing Organization Information: Site ID: [id number] Name: [facility] Address: [address] [place] [id number] Director: Lizabeth Childs Performing Organization Address City/State/Zipcode Phone Number [employer] [place] [address] [place] [address] after 03/23/2018 Insurance Type Payer Benefit Subscriber ID Effective Phone Address Plan / Dates Group HMO/PPO [facility] xxxxxxxxx [id number] THCARE resent CHOICE/CHO ICE + Advance Directives For more information, please contact: [phone] Patient Production Director Explanation Type Date Recorded Advance Directives, Living Will and Medical Power of Certification Technician
--- OUTSIDE RECORDS SUMMARY | 2019-03-24 12:18 | XMS REPORT | Clinical Summary ---
Author Author TRACEY [facility]apPort[facility]uf [facility] CenterDome9 [facility] JosephFlexible Technologies, LLCL[facility] Address Unknown Phone Unavailable Care Team Providers Care Neonatal Specialist Name Role Phone PCP Unavailable Allergies No Known Allergies Medications End Date Status Medication Sig Dispensed Refills Start Date Active atorvastatin (LIPITOR) 20 Take 20 mg by 0 MG tablet mouth daily. Active aspirin 81 MG EC tablet Take 81 mg by 0 mouth daily . Active gabapentin (NEURONTIN) Take 600 mg 0 600 MG tablet by mouth every night as needed . Active escitalopram oxalate Take 20 mg by 0 (LEXAPRO) 20 MG tablet mouth daily. Active multivit-minerals/folic Take 1 tablet 0 acid (WOMEN'S by mouth MULTIVITAMIN GUMMIES daily. ORAL) Active cyanocobalamin, vitamin Take 1 0 B-12, (VITAMIN B-12 ORAL) capsule by mouth daily as needed. Active mupirocin (BACTROBAN) 2 % Apply 0 ointment topically. Active enoxaparin (LOVENOX) 30 Inject 0.3 0 mg/0.3 mL Syrg mLs (30 mg 9 total) subcutaneousl y every 12 (twelve) hours. Active ropivacaine 0.2% AMBIT by 0 Kit (NAROPIN) 400 mL Arlyn-neural 9 route continuous. 11/04/2018 Discontinued etodolac (LODINE) 500 MG Take 500 mg 0 tablet by mouth 2 (two) times daily. 11/04/2018 Discontinued acetaminophen (TYLENOL) Take 1,000 mg 0 500 MG tablet by mouth every 6 (six) hours as needed for Pain. 10/30/2018 Discontinued enoxaparin (LOVENOX) 30 Inject 0.3 0 mg/0.3 mL Syrg mLs (30 mg 8 total) subcutaneousl y every 12 (twelve) hours. 11/14/2018 HYDROcodone-acetaminophen Take 1 tablet 30 tablet 0 (NORCO 10-325) 10-325 mg by mouth 9 per tablet every 4 (four) hours as needed for up to 10 days. Max Daily Amount: 6 tablets Active Problems Problem Noted Date Arthritis of knee, right 11/03/2018 Osteoarthritis 11/03/2018 Unilateral primary osteoarthritis, left hip 09/30/2017 Unilateral primary osteoarthritis, right knee 09/30/2017 Arthritis of left hip 09/30/2017 Encounters Care Team Description Date Type Specialty Junior Verdin, Knee effusion, right (Primary Dx); Aftercare following right knee joint replacement surgery 11/09/2018 Emergency Emergency Medicine 11/09/2018 Travel Raya Mckeon RN Follow-up 11/06/2018 Telephone Anesthesiology Raya Mckeon RN Follow-up 11/05/2018 Telephone Anesthesiology Neha Dahl MD 11/03/2018 Anesthesia Event Dontae Ronquillo DO ARTHROPLASTY,KNEE UNILATERAL 11/03/2018 Surgery Dontae Ronquillo DO Unilateral primary osteoarthritis, right knee 11/03/2018 Hospital General Internal Medicine - Encounter 11/04/2018 Dontae Ronquillo DO 10/30/2018 Hospital Pre-Admission Testing Encounter after 03/23/2018 Family History Medical History Relation Name Comments Atrial fibrillation Brother Alzheimer's disease Father Heart attack Father Stroke Father Pancreatic cancer Mother Relation Name Status Comments Brother Alive Father Alive Mother Social History Date Tobacco Use Types Packs/Day Years Used Current Every Day Smoker 1 30 Smokeless Tobacco: Never Used Alcohol Use Drinks/Week oz/Week Comments Yes rarely Sex Assigned at Date Recorded Not on file Industry Job Start Date Occupation Not on file Not on file Not on file Travel End Travel History Travel Start No recent travel history available. Last Filed Vital Signs Time Taken Vital Sign Reading 11/09/2018 4:45 AM CDT Blood Pressure 124/68 11/09/2018 4:45 AM CDT Pulse 73 11/09/2018 4:45 AM CDT Temperature 36.8 C (98.3 F) 11/09/2018 4:45 AM CDT Respiratory Rate 18 11/09/2018 4:45 AM CDT Oxygen Saturation 95% - Inhaled Oxygen - Concentration 11/03/2018 9:02 AM CDT Weight 102.3 kg (225 lb 9.6 oz) 11/03/2018 9:02 AM CDT Height 174 cm (5' 8.5") 11/03/2018 9:02 AM CDT Body Mass Index 33.8 Plan of Treatment Not on file Implants Device Identifier Shelf Expiration Date Model / Serial / Lot Implanted Type Area Manufactur er 08/06/2022 / / [id number] Scr Canc 6.5x25mm Ss - Fracture/F Left: Hip SEGUN:ST [id number] [id number] SHAMAR Implanted: Qty: 1 on 09/30/2017 by Dontae Esquivel, DO CS 03/26/2022 [id number] / [id number] / Tissue Matrix Graft/Patc Left: Hip CLAIR Implanted: Qty: 1 on 09/30/2017 by Dontae Oden, DO 09/13/2022 502-03-54E / / [id number] Shell Ghazala Hmsphr Clus H 54mm Joints Left: Hip SEGUN:ST 502-03-54e - [id number] SHAMAR Implanted: Qty: 1 on 09/30/2017 by Dontae Esquivel, DO CS 07/24/[id number]- / / [id number] Screw,Bone Canc 6.5x20mm - Joints Left: Hip Segun [id number] Orthopaedi Implanted: Qty: 1 on 09/30/2017 by Dontae Briceño, DO 11/21/2021 623-00-36E / / [id number] Insrt Trident X3 0deg 36mm Joints Left: Hip SEGUN:ST 623-00-36e - [id number] SHAMAR Implanted: Qty: 1 on 09/30/2017 by Dontae Esquivel, DO CS 09/24/2021 [id number] / / [id number] Hip Stem Joints Left: Hip SEGUN Implanted: Qty: 1 on 09/30/2017 by Dontae Ronquillo, DO 12/16/2021 [id number] / / [id number] Head 36mm Biolox Cer C-Tap+5 Joints Left: Hip SEGUN:ST [id number] - [id number] SHAMAR Implanted: Qty: 1 on 09/30/2017 by Dontae Esquivel, DO CS 08/20/2023 5536-B-500 / / [id number] Comp Triathlon Tib Tritanium Joints Right: Knee SEGUN:ST 5536-B-500 - [id number] SHAMAR Implanted: Qty: 1 on 11/03/2018 by Dontae Esquivel, DO CS 12/13/2022 [id number]-L-[id number] / / [id number] Symmetric Patella Joints Right: Knee Le Roy Implanted: Qty: 1 on 11/03/2018 by Dontae Esquivel, DO cs 08/14/2023 5517-F-502 / / [id number] Cruciate Retaining Femoral Joints Right: Knee Le Roy Implanted: Qty: 1 on 11/03/2018 by Dontae Esquivel, DO cs 04/13/2020 5530-G-513 / / [id number] Triathlon Tib Bearing #5 13mm Joints Right: Knee SEGUN:ST 5530-G-513 - [id number] SHAMAR Implanted: Qty: 1 on 11/03/2018 by Dontae Esquivel, DO CS Procedures Comments Procedure Name Priority Date/Time Associated Diagnosis PERIPHERAL VASCULAR 11/09/2018 REPORT - SCAN 4:10 AM CDT XR KNEE RIGHT COMPLETE (4 STAT 11/09/2018 VIEWS) 2:42 AM CDT VENOUS DOPPLER LEG, RIGHT STAT 11/09/2018 2:35 AM CDT CBC W/PLT COUNT & AUTO STAT 11/09/2018 DIFFERENTIAL 2:11 AM CDT CBC W/PLT COUNT & AUTO STAT 11/09/2018 DIFFERENTIAL 2:11 AM CDT CBC W/PLT COUNT & AUTO Routine 11/04/2018 DIFFERENTIAL 4:03 AM CDT CBC W/PLT COUNT & AUTO Routine 11/04/2018 DIFFERENTIAL 4:03 AM CDT BASIC METABOLIC PANEL (7) Routine 11/04/2018 4:03 AM CDT XR KNEE RIGHT 1 OR 2 Routine 11/03/2018 VIEWS 5:00 PM CDT NH AN PERINEURAL CATH - Routine 11/03/2018 NO CHARGE 11:04 AM CDT ARTHROPLASTY,KNEE 11/03/2018 Unilateral primary UNILATERAL 10:30 AM CDT osteoarthritis, right knee Case Notes RIGHT TOTAL KNEE REPLACEMEN TSTRYKER TRANSFUSION SERVICE 10/31/2018 REPORT - SCAN 6:00 PM CDT TYPE AND SCREEN Routine 10/30/2018 10:32 AM CDT after 03/23/2018 Results * PERIPHERAL VASCULAR REPORT - SCAN (11/09/2018 4:10 AM CDT) Narrative Performed At * XR knee complete 4 views right (11/09/2018 2:42 AM CDT) Specimen Narrative Performed At FINAL REPORT [facility] CLINICAL HISTORY: Right knee pain COMPARISON: 11/03/2018 FINDINGS: 4 views of the right knee are submitted. The patient has undergone previous total hip arthroplasty. There is an expected appearance and alignment of the hardware without evidence of loosening or failure. There is no periprosthetic fracture. No destructive bony lesion is present. A small suprapatellar effusion may be present. Signed: Tom Kam MD Report Verified Date/Time:11/09/2018 02:42:13 Reading Location: [address] Reading Room Procedure Note Interface, External Ris In - 11/09/2018 2:44 AM CDT FINAL REPORT CLINICAL HISTORY: Right knee pain COMPARISON: 11/03/2018 FINDINGS: 4 views of the right knee are submitted. The patient has undergone previous total hip arthroplasty. There is an expected appearance and alignment of the hardware without evidence of loosening or failure. There is no periprosthetic fracture. No destructive bony lesion is present. A small suprapatellar effusion may be present. Signed: Tom Kam MD Report Verified Date/Time: 11/09/2018 02:42:13 Reading Location: [address] Reading Room Performing Organization Address [facility] Phone Number [facility] * Venous doppler leg, right (11/09/2018 2:35 AM CDT) Specimen Narrative Performed At FINAL REPORT [facility] CLINICAL HISTORY: Right knee pain Right lower extremity venous Doppler dated 11/09/2018 COMMENT: Real-time grayscale, color and spectral Doppler ultrasound examination of the right lower extremity was performed. The right common femoral, superficial femoral, greater saphenous, profunda femoral, popliteal, posterior tibial, and peroneal veins are patent without filling defect present. There is normal compressibility and augmentation in the veins of the right lower extremity. IMPRESSION: Unremarkable Doppler ultrasound of veins of the right lower extremity without deep venous thrombosis. Signed: Tom Kam MD Report Verified Date/Time:11/09/2018 03:31:12 Reading Location: [address] Reading Room Procedure Note Interface, External Ris In - 11/09/2018 3:33 AM CDT FINAL REPORT CLINICAL HISTORY: Right knee pain Right lower extremity venous Doppler dated 11/09/2018 COMMENT: Real-time grayscale, color and spectral Doppler ultrasound examination of the right lower extremity was performed. The right common femoral, superficial femoral, greater saphenous, profunda femoral, popliteal, posterior tibial, and peroneal veins are patent without filling defect present. There is normal compressibility and augmentation in the veins of the right lower extremity. IMPRESSION: Unremarkable Doppler ultrasound of veins of the right lower extremity without deep venous thrombosis. Signed: Tom Kam MD Report Verified Date/Time: 11/09/2018 03:31:12 Reading Location: [address] Reading Room Performing Organization Address City/[facility] Phone Number [facility] * CBC with platelet count + automated diff (11/09/2018 2:11 AM CDT) Only the most recent of 2 results within the time period is included. WBC 7.8 4.0 - 10.0 K/L [facility] RBC 3.57 (L) 4.00 - 5.00 M/L [facility] Hemoglobin 11.0 (L) 12.0 - 15.5 GM/DL [facility] Hematocrit 33.7 (L) 36.0 - 46.0 % [facility] MCV 94.4 82.0 - 99.0 fL [facility] MCH 30.8 27.0 - 33.0 pg [facility] MCHC 32.6 32.0 - 36.0 GM/DL [facility] RDW 13.6 12.0 - 15.0 % [facility] Platelets 271 150 - 430 K/CU MM [facility] MPV 9.6Comment: MPV-Approximately 6.0 - 11.5 fL [facility] 20% positive bias due to method change. nRBC 0 0 - 0 /100 WBC [facility] % Neutros 60 % [facility] % Lymphs 26 % [facility] % Monos 11 % [facility] % Eos 3 % [facility] % Baso 0 % [facility] # Neutros 4.61 1.80 - 8.00 K/L [facility] # Lymphs 2.00 1.48 - 4.50 K/L [facility] # Monos 0.87 0.00 - 1.30 K/L [facility] # Eos 0.20 0.00 - 0.50 K/L [facility] # Baso 0.03 0.00 - 0.20 K/L [facility] Immature 1 (H) 0 - 0 % [facility] Granulocytes-Relative Specimen Blood Performing Organization Address City/State/Zipcode Phone Number [facility] [address] [place], [place] [phone] * Basic Metabolic Panel (11/04/2018 4:03 AM CDT) Sodium 138 135 - 148 meq/L [facility] Potassium 4.3 3.6 - 5.5 meq/L [facility] Chloride 109 (H) 98 - 106 meq/L [facility] CO2 26 24 - 32 meq/L [facility] BUN 15 10 - 26 mg/dL [facility] Creatinine 0.87 0.50 - 1.20 mg/dL [facility] Glucose 121 (H) 70 - 110 mg/dL [facility] Calcium 9.2 8.5 - 10.5 mg/dL [facility] EGFR 67Comment: ESTIMATED GFR IS mL/min/1.73 sq m [facility] NOT ACCURATE CREATININE CLEARANCE IN PREDICTING GLOMERULAR FILTRATION RATE. ESTIMATED GFR IS NOT APPLICABLE FOR DIALYSIS PATIENTS. Specimen Blood Performing Organization Address [facility]/Zipcode Phone Number [facility] [address] [place] [address] * XR knee 1 or 2 views right (11/03/2018 5:00 PM CDT) Specimen Narrative Performed At FINAL REPORT [facility] Two views of the right knee Comparison: None FINDINGS: The patient is status post right total knee arthroplasty. Perioperative changes with soft tissue swelling, joint fluid and soft tissue air are seen.There is no evidence of displaced fracture or subluxation.The alignment is near anatomic without evidence of hardware failure. IMPRESSION: 1. Status post right total knee arthroplasty with perioperative changes as above. Signed: Avery Koenig MD Report Verified Date/Time:11/03/2018 17:27:20 Reading Location: [facility] Radiology Reading Room Procedure Note Interface, External Ris In - 11/03/2018 5:32 PM CDT FINAL REPORT Two views of the right knee Comparison: None FINDINGS: The patient is status post right total knee arthroplasty. Perioperative changes with soft tissue swelling, joint fluid and soft tissue air are seen. There is no evidence of displaced fracture or subluxation. The alignment is near anatomic without evidence of hardware failure. IMPRESSION: 1. Status post right total knee arthroplasty with perioperative changes as above. Signed: Avery Koenig MD Report Verified Date/Time: 11/03/2018 17:27:20 Reading Location: [facility] Radiology Reading Room Performing Organization Address City/[facility]/Zipcode Phone Number [facility] * ANESTHESIA PERIPHERAL BLOCK (11/03/2018 11:04 AM CDT) Narrative Performed At Neha Dahl MD 11/03/2018 11:05 AM Peripheral Block Patient location during procedure: pre-procedure Start time: 11/03/2018 10:42 AM End time: 11/03/2018 10:51 AM Procedure Indication: at surgeon's request and post-op pain management Preanesthetic Checklist Completed: patient identified, pre-op evaluation, timeout performed, IV checked, risks and benefits discussed, monitors and equipment checked, anesthesia consent given, prep site dry prior to draping and maximum sterile barriers were used: cap, mask, sterile gown, sterile gloves, and large sterile sheet Staffing Anesthesiologist: Neha Dahl MD Other anesthesia staff: Raya Mckeon RN Performed: personally Prep Prep: chlorhexidine gluconate and isopropyl alcohol Procedures: sterile gloves, surgical mask, surgical hat, sterile technique and prep and sterile drape applied Peripheral Nerve Block Patient position: supine Patient monitoring: EKG, HR, BP and SpO2 Laterality: right Block type: adductor canal Injection technique: catheter ultrasound guided - in plane, prescan was completed prior to procedure and needle tip was visualized throughout the entire procedure ultrasound image saved Block Dose: lidocaine (ropivacaine 0.2% 10cc's) and catheter Infiltration strength: 1 % Dose: 15 mL Needle Needle type: Tuohy Needle gauge: 18 G Needle length: 100 mm Needle Localization:anatomical landmarks and US guided Catheter type: closed end Catheter size: 21g.noCatheter tunneled Dressing: Occlusive dressing applied in sterile fashion and Dermabond applied at the catheter insertion site Assessment Injection assessment: incremental injection and negative aspiration for heme LOC: Sedated with meaningful contact supplemental oxygen used. Test dose result: negativeno evidence of intravascular injection and no heart rate changeno paresthesia patient had no immediate complications and patient tolerated the procedure well Additional Notes Assisted by Judi Bowen RN Procedure Note Neha Dahl MD - 11/03/2018 11:04 AM CDT Peripheral Block Patient location during procedure: pre-procedure Start time: 11/03/2018 10:42 AM End time: 11/03/2018 10:51 AM Procedure Indication: at surgeon's request and post-op pain management Preanesthetic Checklist Completed: patient identified, pre-op evaluation, timeout performed, IV checked, risks and benefits discussed, monitors and equipment checked, anesthesia consent given, prep site dry prior to draping and maximum sterile barriers were used: cap, mask, sterile gown, sterile gloves, and large sterile sheet Staffing Anesthesiologist: Neha Dahl MD Other anesthesia staff: Raya Mckeon RN Performed: personally Prep Prep: chlorhexidine gluconate and isopropyl alcohol Procedures: sterile gloves, surgical mask, surgical hat, sterile technique and prep and sterile drape applied Peripheral Nerve Block Patient position: supine Patient monitoring: EKG, HR, BP and SpO2 Laterality: right Block type: adductor canal Injection technique: catheter ultrasound guided - in plane, prescan was completed prior to procedure and needle tip was visualized throughout the entire procedure ultrasound image saved Block Dose: lidocaine (ropivacaine 0.2% 10cc's) and catheter Infiltration strength: 1 % Dose: 15 mL Needle Needle type: Tuohy Needle gauge: 18 G Needle length: 100 mm Needle Localization: anatomical landmarks and US guided Catheter type: closed end Catheter size: 21g.noCatheter tunneled Dressing: Occlusive dressing applied in sterile fashion and Dermabond applied at the catheter insertion site Assessment Injection assessment: incremental injection and negative aspiration for heme LOC: Sedated with meaningful contact supplemental oxygen used. Test dose result: negativeno evidence of intravascular injection and no heart rate changeno paresthesia patient had no immediate complications and patient tolerated the procedure well Additional Notes Assisted by Judi Bowen RN * TRANSFUSION SERVICE REPORT - SCAN (10/31/2018 6:00 PM CDT) Narrative Performed At * Type and screen (10/30/2018 10:32 AM CDT) Ab Scrn NEGATIVE [facility] ABO Grouping A [facility] Rh Factor POS [facility] Specimen Blood Performing Organization Address City/State/Zipcode Phone Number [facility] [address] [place] [address] HOSPITAL after 03/23/2018 Insurance Payer Benefit Subscriber ID Type Phone Address Plan / Group [employer] [facility] [employer] xxxxxxxxx HMO/POS CARE POS SELECT CHOICE Advance Directives For more information, please contact: [facility] [address] [place] [address] 35 Date Inactivated Comments Code Status Date Activated 11/04/2018 7:57 PM Full Code 11/03/2018 8:30 AM This code status was determined by: Patient 10/02/2017 1:27 PM Full Code 09/30/2017 9:35 AM This code status was determined by: Patient
--- OUTSIDE RECORDS SUMMARY | 2019-03-24 12:19 | XMS REPORT ---
Author Author [facility] Address Unknown Phone Unavailable Care Team Providers Care [employer] Name Role Phone Chinyere SINHA Unavailable Unavailable HIPOLITO SMOMER Unavailable Unavailable Problems This patient has no known problems. Allergies, Adverse Reactions, Alerts This patient has no known allergies or adverse reactions. Medications This patient has no known medications. Results Test Description Test Time Test Comments Text Results Atomic Results Result Comments VENOUS DOPPLER LEG, RIGHT 2018-11-09 03:31:00 Reason for exam:->KNEE PAINknee pain FINAL REPORT CLINICAL HISTORY: Right knee pain [...] without deep venous thrombosis. Signed: Tom Kam Verified Date/Time: 11/09/2018 03:31:12 Reading Location: [address] Reading Room , KNEE, COMPLETE (4 VIEWS), RIGHT 2018-11-09 02:42:00 Reason for exam:->KNEE PAINknee pain FINAL REPORT CLINICAL HISTORY: Right knee pain COMPARISON: 11/03/2018 FINDINGS: 4 views of the right knee are submitted. The patient has undergone previous total hip arthroplasty. There is an expected appearance and alignment of the hardware without evidence of loosening or failure. There is no periprosthetic fracture. No destructive bony lesion is present. A small suprapatellar effusion may be present. Signed: Tom Kam Verified Date/Time: 11/09/2018 02:42:13 Reading Location: [address] Reading Room W/PLT COUNT & AUTO DIFFERENTIAL 2018-11-09 02:15:00 WHITE BLOOD CELL COUNT (BEAKER) (test fpui=233) 7.8 K/ L 4.0-10.0 RED BLOOD CELL COUNT (BEAKER) (test qhpx=016) 3.57 M/ L 4.00-5.00 HEMOGLOBIN (BEAKER) (test dfbe=532) 11.0 GM/DL 12.0-15.5 HEMATOCRIT (BEAKER) (test zidu=065) 33.7 % 36.0-46.0 MEAN CORPUSCULAR VOLUME (BEAKER) (test glhl=126) 94.4 fL 82.0-99.0 MEAN CORPUSCULAR HEMOGLOBIN (BEAKER) (test xtvs=771) 30.8 pg 27.0-33.0 MEAN CORPUSCULAR HEMOGLOBIN CONC (BEAKER) (test yuig=464) 32.6 GM/DL 32.0-36.0 RED CELL DISTRIBUTION WIDTH (BEAKER) (test xsnj=574) 13.6 % 12.0-15.0 PLATELET COUNT (BEAKER) (test ktus=588) 271 K/CU MM 150-430 MEAN PLATELET VOLUME (BEAKER) (test klya=354) 9.6 fL 6.0-11.5 MPV-Approximately 20% positive bias due to method change. NUCLEATED RED BLOOD CELLS (BEAKER) (test jcwj=412) 0 /100 WBC 0-0 NEUTROPHILS RELATIVE PERCENT (BEAKER) (test gfcl=066) 60 % LYMPHOCYTES RELATIVE PERCENT (BEAKER) (test ambl=261) 26 % MONOCYTES RELATIVE PERCENT (BEAKER) (test tstu=324) 11 % EOSINOPHILS RELATIVE PERCENT (BEAKER) (test tuxt=084) 3 % BASOPHILS RELATIVE PERCENT (BEAKER) (test aqbk=044) 0 % NEUTROPHILS ABSOLUTE COUNT (BEAKER) (test aobe=099) 4.61 K/ L 1.80-8.00 LYMPHOCYTES ABSOLUTE COUNT (BEAKER) (test kxed=475) 2.00 K/ L 1.48-4.50 MONOCYTES ABSOLUTE COUNT (BEAKER) (test tiwt=055) 0.87 K/ L 0.00-1.30 EOSINOPHILS ABSOLUTE COUNT (BEAKER) (test zpph=450) 0.20 K/ L 0.00-0.50 BASOPHILS ABSOLUTE COUNT (BEAKER) (test avdx=202) 0.03 K/ L 0.00-0.20 IMMATURE GRANULOCYTES-RELATIVE PERCENT (BEAKER) (test mjqx=8998) 1 % 0-0 BASIC METABOLIC [id number] 04:31:00* Test Item Value Reference Range Comments SODIUM (BEAKER) (test dldg=914) 138 meq/L 135-148 POTASSIUM (BEAKER) (test uoiq=431) 4.3 meq/L 3.6-5.5 CHLORIDE (BEAKER) (test zwtt=704) 109 meq/L 98-106 CO2 (BEAKER) (test cmab=867) 26 meq/L 24-32 BLOOD UREA NITROGEN (BEAKER) (test ipxf=314) 15 mg/dL 10-26 CREATININE (BEAKER) (test fbpo=367) 0.87 mg/dL 0.50-1.20 GLUCOSE RANDOM (BEAKER) (test kcrs=937) 121 mg/dL 70-110 CALCIUM (BEAKER) (test ikyz=698) 9.2 mg/dL 8.5-10.5 EGFR (BEAKER) (test dflv=7880) 67 mL/min/1.73 sq m ESTIMATED GFR IS NOT ACCURATE CREATININE CLEARANCE IN PREDICTING GLOMERULAR FILTRATION RATE. ESTIMATED GFR IS NOT APPLICABLE FOR DIALYSIS PATIENTS. CBC W/PLT COUNT & AUTO [id number] 04:23:00* Test Item Value Reference Range Comments WHITE BLOOD CELL COUNT (BEAKER) (test pvfm=164) 11.7 K/ L 4.0-10.0 RED BLOOD CELL COUNT (BEAKER) (test iyrv=680) 3.77 M/ L 4.00-5.00 HEMOGLOBIN (BEAKER) (test jhah=443) 11.6 GM/DL 12.0-15.5 HEMATOCRIT (BEAKER) (test jfdl=909) 35.9 % 36.0-46.0 MEAN CORPUSCULAR VOLUME (BEAKER) (test aytk=732) 95.2 fL 82.0-99.0 MEAN CORPUSCULAR HEMOGLOBIN (BEAKER) (test aafe=226) 30.8 pg 27.0-33.0 MEAN CORPUSCULAR HEMOGLOBIN CONC (BEAKER) (test siwd=923) 32.3 GM/DL 32.0-36.0 RED CELL DISTRIBUTION WIDTH (BEAKER) (test dzbj=415) 13.5 % 12.0-15.0 PLATELET COUNT (BEAKER) (test vyys=203) 182 K/CU MM 150-430 MEAN PLATELET VOLUME (BEAKER) (test gbqc=052) 10.2 fL 6.0-11.5 MPV-Approximately 20% positive bias due to method change. NUCLEATED RED BLOOD CELLS (BEAKER) (test gcfj=028) 0 /100 WBC 0-0 NEUTROPHILS RELATIVE PERCENT (BEAKER) (test ntau=708) 76 % LYMPHOCYTES RELATIVE PERCENT (BEAKER) (test fdmr=138) 12 % MONOCYTES RELATIVE PERCENT (BEAKER) (test ezpq=584) 11 % EOSINOPHILS RELATIVE PERCENT (BEAKER) (test wefr=066) 0 % BASOPHILS RELATIVE PERCENT (BEAKER) (test wmvh=684) 0 % NEUTROPHILS ABSOLUTE COUNT (BEAKER) (test txgb=453) 8.82 K/ L 1.80-8.00 LYMPHOCYTES ABSOLUTE COUNT (BEAKER) (test hgwo=877) 1.44 K/ L 1.48-4.50 MONOCYTES ABSOLUTE COUNT (BEAKER) (test zoib=550) 1.33 K/ L 0.00-1.30 EOSINOPHILS ABSOLUTE COUNT (BEAKER) (test twhn=305) 0.02 K/ L 0.00-0.50 BASOPHILS ABSOLUTE COUNT (BEAKER) (test hgbt=405) 0.02 K/ L 0.00-0.20 IMMATURE GRANULOCYTES-RELATIVE PERCENT (BEAKER) (test jmua=8271) 0 % 0-0 RAD, KNEE, 1 OR 2 VIEWS, [id number] 17:27:00Of operative side while in recovery room.Reason for exam:->POST OPShould this be performed at the bedside?- >YesFINAL REPORT Two views of the right knee [...] arthroplasty with perioperative changes as above. Signed: Farhana Koenig MDReport Verified Date/Time: 11/03/2018 17:27:20 Reading Location: [facility] Radiology Reading Room W/PLT COUNT & AUTO [id number] 04:05:00* Test Item Value Reference Range Comments WHITE BLOOD CELL COUNT (BEAKER) (test lkho=002) 9.4 K/ L 4.0-10.0 RED BLOOD CELL COUNT (BEAKER) (test pmrg=073) 3.69 M/ L 4.00-5.00 HEMOGLOBIN (BEAKER) (test taaf=783) 10.6 GM/DL 12.0-15.0 HEMATOCRIT (BEAKER) (test yuqh=956) 32.3 % 36.0-45.0 MEAN CORPUSCULAR VOLUME (BEAKER) (test gsnf=365) 87.8 fL 82.0-99.0 MEAN CORPUSCULAR HEMOGLOBIN (BEAKER) (test gmqu=623) 28.7 pg 27.0-33.0 MEAN CORPUSCULAR HEMOGLOBIN CONC (BEAKER) (test vxuy=607) 32.7 GM/DL 32.0-36.0 RED CELL DISTRIBUTION WIDTH (BEAKER) (test fauj=654) 15.5 % 12.0-15.0 PLATELET COUNT (BEAKER) (test jpvs=472) 195 K/CU MM 150-430 MEAN PLATELET VOLUME (BEAKER) (test qolu=993) 8.6 fL 6.5-10.5 NEUTROPHILS RELATIVE PERCENT (BEAKER) (test bttl=101) 85 % LYMPHOCYTES RELATIVE PERCENT (BEAKER) (test rvwx=979) 9 % MONOCYTES RELATIVE PERCENT (BEAKER) (test pkpg=058) 5 % EOSINOPHILS RELATIVE PERCENT (BEAKER) (test vhdj=932) 0 % BASOPHILS RELATIVE PERCENT (BEAKER) (test hjgi=723) 0 % NEUTROPHILS ABSOLUTE COUNT (BEAKER) (test aran=416) 8.00 K/ L 1.80-8.00 LYMPHOCYTES ABSOLUTE COUNT (BEAKER) (test szxm=963) 0.90 K/ L 1.48-4.50 MONOCYTES ABSOLUTE COUNT (BEAKER) (test ypgp=870) 0.50 K/ L 0.00-1.30 EOSINOPHILS ABSOLUTE COUNT (BEAKER) (test vtwx=814) 0.00 K/ L 0.00-0.50 BASOPHILS ABSOLUTE COUNT (BEAKER) (test yozo=858) 0.00 K/ L 0.00-0.20 BASIC METABOLIC [id number] 04:03:00* Test Item Value Reference Range Comments SODIUM (BEAKER) (test wowu=256) 142 meq/L 135-148 POTASSIUM (BEAKER) (test wydh=386) 4.8 meq/L 3.6-5.5 CHLORIDE (BEAKER) (test cbup=583) 109 meq/L 98-106 CO2 (BEAKER) (test otxt=931) 26 meq/L 24-32 BLOOD UREA NITROGEN (BEAKER) (test eolr=133) 16 mg/dL 10-26 CREATININE (BEAKER) (test ukzv=898) 1.06 mg/dL 0.50-1.20 GLUCOSE RANDOM (BEAKER) (test hkhe=089) 131 mg/dL 70-110 CALCIUM (BEAKER) (test lncx=063) 9.0 mg/dL 8.5-10.5 EGFR (BEAKER) (test rfmv=5321) 53 mL/min/1.73 sq m ESTIMATED GFR IS NOT ACCURATE CREATININE CLEARANCE IN PREDICTING GLOMERULAR FILTRATION RATE. ESTIMATED GFR IS NOT APPLICABLE FOR DIALYSIS PATIENTS. RAD, HIP, 2 VIEWS, [id number] 16:25:00AP and LateralReason for exam:->post opFINAL REPORT Two portable views of the left hip without comparison. IMPRESSION: The patient is status post left total hip arthroplasty with intact hardware and alignment. A surgical drain is noted. No periprosthetic fracture or lucency is evident. Signed: Farhana Koenig MDReport Verified Date/Time: 09/30/2017 16:25:05 Reading Location: [facility] Radiology Reading Room [facility] signed by: FARHANA KOENIG M.D. 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 This examination is nondiagnostic. Fluoroscopy was not performed by the undersigned, and the radiologist was not present at the time of examination. Interpretation of the images was not requ ested. Total fluoroscopy time: 18.7 seconds Total number of films: 3 Please refe r to the referring physician's procedure report for complete detail. Signed: Farhana Lubin Verified Date/Time: 09/30/2017 14:06:11 Reading Location: [facility] Radiology Reading Room Electronically signed by: FARHANA KOENIG M.D. on 06/2018 02:06 PM
--- OUTSIDE RECORDS SUMMARY | 2019-03-24 12:19 | XMS REPORT | Continuity of Care Document ---
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 Problem 03/[facility]2017 [facility] Hearing difficulty Resolved Problem 03/09/2017 [facility] Hyperlipemia Resolved Problem 03/09/2017 [facility] Arthritis Resolved Problem 03/09/2017 [facility] Depressed Resolved Problem 03/09/2017 [facility] Neuropathy Resolved Problem 03/09/2017 [facility] APPENDICITIS NOS Active [facility] CEREBRAL INFARCTION, UNSPECIFIED Active [facility] SLURRED SPEECH Active [facility] Medications Medication Details Route Status Patient Instructions Ordering Provider Order Date Source Cefuroxime 250 MG Oral Tablet [Ceftin] 250 mg=1 tab, PO, BID, X 7 day, # 14 tab, 0 Refill(s) Active 03/06/2017 [facility] Lexapro 20 mg, 2 tab, Route: PO, Drug form: TAB, Bedtime, Dosing Weight 114.091, kg, PRN Pain Score 1-5, Start date: 03/06/17 1:03:00 CDT, Duration: 30 day, Stop date: 04/05/17 1:02:00 CDTNotes: (Same as: Lexapro) Inactive 03/06/2017 [facility] Rocephin 1 gm, Route: IVPB, [id number], Dosing Weight 114.091, kg, Start date: 03/05/17 16:00:00 CDT, Duration: 3 day, Stop date: 03/07/17 16:00:00 CDT, ABX Indication: Other (specify in Comments)Notes: (Same As: Jona magaña). Use with 100 mL NS and infuse over 30 min MEDICATION WASTE Product Size: 1000 mg Product Wasted: ___ mg No Longer Active 03/05/2017 [facility] Pneumovax 23 0.5 mL, Route: IM, Drug Form: INJ, Daily, Start date: 03/05/17 11:00:00 CDT, Duration: 1 doses or times, Stop date: 03/05/17 11:00:00 CDTNotes: (Same as: Pneumovax 23) Refrigerate Inactive 03/05/2017 [facility] pneumococcal capsular polysaccharide type 1 vaccine / pneumococcal capsular polysaccharide type 10A vaccine / pneumococcal capsular polysaccharide type 11A vaccine / pneumococcal capsular polysaccharide type 12F vaccine / pneumococcal capsular polysacchar 0.5 mL, Route: IM, Drug Form: INJ, Daily, Start date: 03/05/17 9:00:00 CDT, Duration: 1 doses or times, Stop date: 03/05/17 9:00:00 CDTNotes: (Same as: Pneumovax 23) Refrigerate Inactive 03/05/2017 [facility] Aspirin 81 mg, 1 tab, Route: PO, Drug form: ECTAB, Daily, Dosing Weight 112.443, kg, Start date: 03/05/17 9:00:00 CDT, Duration: 30 day, Stop date: 04/03/17 9:00:00 CDTNotes: Do not crush or chew. (Same As: Ecotrin) No Longer Active 03/05/2017 [facility] Simvastatin 10 mg, 2 tab, Route: PO, Drug form: TAB, Bedtime, Dosing Weight 112.443, kg, Start date: 03/04/17 21:00:00 CDT, Duration: 30 day, Stop date: 04/02/17 21:00:00 CDTNotes: (Same as: Zocor) No Longer Active 03/05/2017 [facility] Aspirin 81 mg, PO, Daily, 0 Refill(s) Active 03/05/2017 [facility] gabapentin 300 MG Oral Capsule 300 mg=1 cap, PO, BID, # 90 cap, 1 Refill(s) Active 03/05/2017 [facility] gabapentin 300 MG Oral Capsule 300 mg, 1 cap, Route: PO, Drug form: CAP, BID, Dosing Weight 112.443, kg, Start date: 03/04/17 17:00:00 CDT, Duration: 30 day, Stop date: 04/03/17 9:00:00 CDTNotes: (Same as: Neurontin) No Longer Active 03/04/2017 [facility] Docusate 100 mg, 1 cap, Route: PO, Drug form: CAP, BID, Dosing Weight 112.443, kg, Start date: 03/04/17 17:00:00 CDT, Duration: 30 day, Stop date: 04/03/17 9:00:00 CDTNotes: (Same as: Colace) (Do Not Crush) No Longer Active 03/04/2017 [facility] tramadol hydrochloride 50 MG Oral Tablet 50 mg, 1 tab, Route: PO, Drug form: TAB, Q6H, Dosing Weight 112.443, kg, PRN Pain Score 1-3, Start date: 03/04/17 16:34:00 CDT, Duration: 30 day, Stop date: 04/03/17 16:33:00 CDTNotes: Not to exceed 400mg/day. (Same As: Ultram) No Longer Active 03/04/2017 [facility] Ondansetron 4 mg, 2 mL, Route: IVP, Drug form: INJ, Q6H, Dosing Weight 112.443, kg, PRN Nausea & Vomiting, Start date: 03/04/17 16:24:00 CDT, Duration: 30 day, Stop date: 04/03/17 16:23:00 CDTNotes: (Same as: Zofran) MEDICATION WASTE Product Size: 4 mg Product Wasted: ___ mg No Longer Active 03/04/2017 [facility] Acetaminophen 650 mg, 2 tab, Route: PO, Drug form: TAB, Q4H, Dosing Weight 112.443, kg, PRN Pain 1-3/Temp > 100.4 F, Start date: 03/04/17 16:24:00 CDT, Duration: 30 day, Stop date: 04/03/17 16:23:00 CDTNotes: Do not exceed 4 gm/day. (Same as: Tylenol) No Longer Active 03/04/2017 [facility] Aspirin 325 mg, 1 tab, Route: PO, Drug form: TAB, ONCE, Dosing Weight 112.443, kg, Priority: STAT, Start date: 03/04/17 15:32:00 CDT, Stop date: 03/04/17 15:32:00 CDTNotes: Take with food. Inactive 03/04/2017 [facility] NS (Bolus) IV 1,000 mL, 1,000 ml/hr, Infuse Over: 1 hr, Route: IV, 1,000, Drug form: INJ, ONCE, Priority: STAT, Dosing Weight 112.443 kg, Start date: 03/04/17 15:27:00 CDT, Duration: 1 doses or times, Stop date: 0 03/04/17 15:27:00 CDT Inactive 03/04/2017 [facility] Saline Flush 0.9% 10 mL, Route: IVP, Drug Form: INJ, Dosing Weight 112.443, kg, PRN, PRN Line Flush, Start date: 03/04/17 14:44:00 CDT, Duration: 30 day, Stop date: 04/03/17 14:43:00 CDTNotes: Same as: BD Posiflush Sterile No Longer Active 03/04/2017 [facility] Acetaminophen 300 MG / Codeine Phosphate 30 MG Oral Tablet [Tylenol with Codeine #3] 1 tab, PO, Q6H, for pain, # 30 tab, 0 Refill(s) Active 06/17/2014 [facility] Lovenox 40 mg, 0.4 mL, Route: SUB-Q, Drug form: INJ, Q24H, Dosing Weight 102.727, kg, Start date: 06/17/14 7:00:00, Duration: 30 day, Stop date: 07/16/14 7:00:00Notes: (Same as: Lovenox) Inactive 06/17/2014 [facility] Etodolac 300 MG Oral Capsule [Lodine] 500 mg, PO, BID, 0 Refill(s) Active 06/17/2014 [facility] simvastatin 40 mg oral tablet 500 mg=, PO, Bedtime, # 30 tab, 0 Refill(s) Active 06/17/2014 [facility] Famotidine 20 mg, 1 tab, Route: PO, Drug form: TAB, Q12H, Dosing Weight 102.727, kg, Start date: 06/16/14 9:00:00, Duration: 30 day, Stop date: 07/15/14 21:00:00Notes: (Same as: Pepcid) No Longer Active 06/16/2014 [facility] Albuterol 0.83 MG/ML Inhalant Solution 2.49 mg, 3 mL, Route: NEB, Drug form: SOLN, PRN, Dosing Weight 102.727, kg, PRN Respiratory Protocol, Start date: 06/16/14 8:15:00, Duration: 30 day, Stop date: 07/16/14 8:14:00Notes: SEE RT DOCUMENTATION (Same as: Proventil) Inactive 06/16/2014 [facility] Dexamethasone 4 mg, 1 mL, Route: IVP, Drug form: INJ, ONCE, Dosing Weight 102.727, kg, PRN Nausea & Vomiting, Start date: 06/16/14 8:15:00Notes: Concentration: 4mg/ml Inactive 06/16/2014 [facility] Promethazine 6.25 mg, 25 mL, Route: IVPB, Drug form: SOLN, ONCE, Dosing Weight 102.727, kg, PRN Nausea & Vomiting, Start date: 06/16/14 8:15:00 Inactive 06/16/2014 [facility] Ondansetron 4 mg, Route: IVP, ONCE, Dosing Weight 102.727, kg, PRN Nausea & Vomiting, Start date: 06/16/14 8:15:00 Inactive 06/16/2014 [facility] Naloxone 0.1 mg, 0.25 mL, Route: SUB-Q, Drug form: INJ, Q6H, Dosing Weight 102.727, kg, PRN Itching, Start date: 06/16/14 8:15:00, Duration: 30 day, Stop date: 07/16/14 8:14:00Notes: Same as Narcan Inactive 06/16/2014 [facility] Flumazenil 0.2 mg, 2 mL, Route: IVP, Drug form: INJ, PRN, Dosing Weight 102.727, kg, PRN Benzodiazepine Reversal, Initial dose, Start date: 06/16/14 8:15:00, Duration: 30 day, Stop date: 07/16/14 8:14:00Notes: (Same as: Romazicon) Inactive 06/16/2014 [facility] Ephedrine 5 mg, 0.1 mL, Route: IVP, Drug form: INJ, Q5Min, Dosing Weight 102.727, kg, PRN Low Blood Pressure, Start date: 06/16/14 8:15:00, Duration: 30 day, Stop date: 07/16/14 8:14:00Notes: (Same as: ePHEDrine Sulfate) Inactive 06/16/2014 [facility] Glycopyrrolate 0.2 mg, 1 mL, Route: IVP, Drug form: INJ, Q5Min, Dosing Weight 102.727, kg, PRN Bradycardia, Start date: 06/16/14 8:15:00, Duration: 3 doses or times, Stop date: Limited # of timesNotes: (Same as: Dawson) Inactive 06/16/2014 [facility] Racepinephrine 11.25 mg, 0.5 mL, Route: NEB, Drug Form: SOLN, Dosing Weight 102.727, kg, PRN, PRN Shortness of breath, Start date: 06/16/14 8:15:00, Duration: 30 day, Stop date: 07/16/14 8:14:00Notes: (racepinephrine *2.25% inh 0.5ml SOLN) (Same as:S2) Inactive 06/16/2014 [facility] Diphenhydramine 12.5 mg, 0.25 mL, Route: IVP, Drug form: INJ, Q6H, Dosing Weight 102.727, kg, PRN Itching, Start date: 06/16/14 8:15:00, Duration: 30 day, Stop date: 07/16/14 8:14:00Notes: (Same as: Benadryl) Inactive 06/16/2014 [facility] Oxycodone 10 mg, 2 tab, Route: PO, Drug form: TAB, Q4H, Dosing Weight 102.727, kg, PRN Pain Score 7-10, Start date: 06/16/14 8:15:00, Duration: 30 day, Stop date: 07/16/14 8:14:00Notes: (Same as: Roxicodone) Inactive 06/16/2014 [facility] Fentanyl 25 microgram, 0.5 mL, Route: IVP, Drug form: INJ, Q5Min, Dosing Weight 102.727, kg, PRN Pain Score 4-6, Start date: 06/16/14 8:15:00, Duration: 4 doses or times, Stop date: Limited # of timesNotes: (Same as: Sublimaze) Preservative free. Inactive 06/16/2014 [facility] Hydromorphone 0.5 mg, 0.25 mL, Route: IVP, Drug form: INJ, Q5Min, Dosing Weight 102.727, kg, PRN Pain Score 7-10, Start date: 06/16/14 8:15:00, Duration: 4 doses or times, Stop date: Limited # of timesNotes: Same as: Dilaudid Inactive 06/16/2014 [facility] Morphine 2 mg, 1 mL, Route: IVP, Drug form: INJ, Q5Min, Dosing Weight 102.727, kg, PRN Pain Score 4-6, Start date: 06/16/14 8:15:00, Duration: 5 doses or times, Stop date: Limited # of timesNotes: (Same as:MO RPhine Sulfate) Inactive 06/16/2014 [facility] Acetaminophen 1,000 mg, 100 mL, Route: IVPB, Drug form: INJ, ONCE, Dosing Weight 102.727, kg, PRN Pain Score 1-3, Start date: 06/16/14 8:15:00, Duration: 1 doses or times, Stop date: Limited # of timesNotes: Infuse over 15 minutes Do not exceed 4gm/day of acetaminophen Inactive 06/16/2014 [facility] Labetalol 10 mg, 2 mL, Route: IVP, Drug form: INJ, Q5Min, Dosing Weight 102.727, kg, PRN Elevated BP, Start date: 06/16/14 8:15:00, Duration: 5 doses or times, Stop date: Limited # of times Inactive 06/16/2014 [facility] Hydralazine 10 mg, 0.5 mL, Route: IVP, Drug form: INJ, Q20Min, Dosing Weight 102.727, kg, PRN Elevated BP, Start date: 06/16/14 8:15:00, Duration: 2 doses or times, Stop date: Limited # of timesNotes: (Same as: Apresoline) Push over 5 minutes Inactive 06/16/2014 [facility] Calcium Chloride 0.0014 MEQ/ML / Potassium Chloride 0.004 MEQ/ML / Sodium Chloride 0.103 MEQ/ML / Sodium Lactate 0.028 MEQ/ML Injectable Solution 500 mL, Rate: 125 ml/hr, Infuse over: 4 hr, Route: IV, Dosing Weight 102.727 kg, Total Volume: 500, Start date: 06/16/14 8:15:00, Duration: 30 day, Stop date: 07/16/14 8:14:00 Inactive 06/16/2014 [facility] Ondansetron 4 mg, 2 mL, Route: IVP, Drug form: INJ, Q6H, Dosing Weight 102.727, kg, PRN Nausea & Vomiting, Start date: 06/16/14 7:57:00, Duration: 30 day, Stop date: 07/16/14 7:56:00Notes: (Same as: Zofran) No Longer Active 06/16/2014 [facility] Temazepam 7.5 mg, 1 cap, Route: PO, Drug form: CAP, Bedtime, Dosing Weight 102.727, kg, PRN Insomnia, Start date: 06/16/14 7:57:00, Duration: 30 day, Stop date: 07/16/14 7:56:00Notes: (Same As: Restoril) No Longer Active 06/16/2014 [facility] Acetaminophen 325 MG / Hydrocodone Bitartrate 10 MG Oral Tablet 1 tab, Route: PO, Drug Form: TAB, Dosing Weight 102.727, kg, Q4H, PRN Pain Score 1-3, Start date: 06/16/14 7:57:00, Duration: 30 day, Stop date: 07/16/14 7:56:00Notes: Do not exceed 4gm/day of acetaminophen. (Same as: [place] 325/10) No Longer Active 06/16/2014 [facility] Morphine 2 mg, 1 mL, Route: IVP, Drug form: INJ, Q2H, Dosing Weight 102.727, kg, PRN Pain Score 4-6, Start date: 06/16/14 7:57:00, Duration: 30 day, Stop date: 07/16/14 7:56:00Notes: (Same as:MORPhine Sulfate) No Longer Active 06/16/2014 [facility] Calcium Chloride 0.0014 MEQ/ML / Potassium Chloride 0.004 MEQ/ML / Sodium Chloride 0.103 MEQ/ML / Sodium Lactate 0.028 MEQ/ML Injectable Solution 500 mL, Rate: 75 ml/hr, Infuse over: 6.7 hr, Route: IV, Dosing Weight 102.727 kg, Total Volume: 500, Start date: 06/16/14 7:57:00, Duration: 30 day, Stop date: 07/16/14 7:56:00 No Longer Active 06/16/2014 [facility] Escitalopram 20 MG Oral Tablet [Lexapro] 20 mg, PO, Bedtime, Pain Score 1-5, # 30 tab, 0 Refill(s) Active 06/16/2014 [facility] Lactated Ringers IV 500 mL 500 mL, Rate: 40 ml/hr, Infuse over: 12.5 hr, Route: IV, Dosing Weight 48.182 kg, Total Volume: 500, Start date: 06/16/14 5:10:00, Duration: 30 day, Stop date: 07/16/14 5:09:00 Inactive 06/16/2014 [facility] Invanz 1 gm, Route: IVPB, Drug form: INJ, [id number], Dosing Weight 48.182, kg, Start date: 06/16/14 3:00:00, Duration: 30 day, Stop date: 07/15/14 3:00:00Notes: (Same as: INVanz) Refrigerate. NOT COMPATIBLE WITH D5W. Stable in refrigerator for 24 hours. No Longer Active 06/16/2014 [facility] Zofran 4 mg, 2 mL, Route: IV, Drug form: INJ, Q8H, Dosing Weight 48.182, kg, PRN as needed for nausea/vomiting, Start date: 06/16/14 2:47:00, Duration: 30 day, Stop date: 07/16/14 2:46:00Notes: (Same as: Zofran) Inactive 06/16/2014 [facility] Morphine 4 mg, 1 mL, Route: IV, Drug form: INJ, Q2H, Dosing Weight 48.182, kg, PRN Pain, Start date: 06/16/14 2:47:00, Duration: 30 day, Stop date: 07/16/14 2:46:00, Severe pain 7-10Notes: (Same as:MORPhine Sulfate) Inactive 06/16/2014 [facility] Lactated Ringers IV 1,000 mL 1,000 mL, Rate: 100 ml/hr, Infuse over: 10 hr, Route: IV, Dosing Weight 48.182 kg, Total Volume: 1,000, Start date: 06/16/14 2:43:00, Duration: 30 day, Stop date: 07/16/14 2:42:00 Inactive 06/16/2014 [facility] Allergies, Adverse Reactions, Alerts No Known Medication Allergies Immunizations Immunization Date Given Site Status Last Updated Comments Source pneumococcal 23-valent vaccine 03/05/2017 Right deltoid completed [place] Results Order Name Results Value Reference Range Date Interpretation Comments Source CHEM PANEL A/G Ratio 0.9 0.7 - 1.6 03/05/2017 [facility] CHEM PANEL AGAP 11.3 10.0 - 20.0 03/05/2017 [facility] CHEM PANEL B/C Ratio 22 6 - 25 03/05/2017 [facility] CHEM PANEL Globulin 3.8 2.7 - 4.2 03/05/2017 [facility] CHEM PANEL eGFR 77 03/05/2017 Result Comment: [...] should be multiplied by the estimated BMI. [facility] CHEM PANEL Creatinine Lvl 0.85 0.50 - 1.40 03/05/2017 [facility] CHEM PANEL Sodium Lvl 142 135 - 145 03/05/2017 [facility] CHEM PANEL Potassium Lvl 4.3 3.5 - 5.1 03/05/2017 [facility] CHEM PANEL Glucose Lvl 91 70 - 99 03/05/2017 [facility] CHEM PANEL BUN 19 7 - 22 03/05/2017 [facility] CHEM PANEL AST 16 0 - 37 03/05/2017 [facility] CHEM PANEL Bili Total 0.4 0.2 - 1.3 03/05/2017 [facility] CHEM PANEL Alk Phos 84 39 - 136 03/05/2017 [facility] CHEM PANEL Chloride Lvl 109 95 - 109 03/05/2017 [facility] CHEM PANEL CO2 26 24 - 32 03/05/2017 [facility] CHEM PANEL Calcium Lvl 9.9 8.5 - 10.5 03/05/2017 [facility] CHEM PANEL Total Protein 7.1 6.4 - 8.4 03/05/2017 [facility] CHEM PANEL Albumin Lvl 3.3 3.5 - 5.0 03/05/2017 [facility] CHEM PANEL ALT 22 0 - 65 03/05/2017 [facility] HEMATOLOGY Eosinophils # 0.1 0.0 - 0.5 03/05/2017 [facility] HEMATOLOGY Lymphocytes # 2.5 1.0 - 5.5 03/05/2017 [facility] HEMATOLOGY Segs-Bands # 7.5 1.5 - 8.1 03/05/2017 [facility] HEMATOLOGY Monocytes # 0.7 0.0 - 0.8 03/05/2017 [facility] HEMATOLOGY Basophils 0.4 0.0 - 1.0 03/05/2017 [facility] HEMATOLOGY Eosinophils 1.2 0.0 - 4.0 03/05/2017 [facility] HEMATOLOGY Monocytes 6.5 2.0 - 12.0 03/05/2017 [facility] HEMATOLOGY Segs 69.3 45.0 - 75.0 03/05/2017 [facility] HEMATOLOGY Lymphocytes 22.6 20.0 - 40.0 03/05/2017 [facility] HEMATOLOGY RDW 15.2 11.5 - 14.5 03/05/2017 [facility] HEMATOLOGY Platelet 263 133 - 450 03/05/2017 [facility] HEMATOLOGY MCHC 32.7 32.0 - 36.0 03/05/2017 [facility] HEMATOLOGY MCH 27.8 27.0 - 31.0 03/05/2017 [facility] HEMATOLOGY MPV 9.2 7.4 - 10.4 03/05/2017 [facility] HEMATOLOGY MCV 85.0 80.0 - 98.0 03/05/2017 [facility] HEMATOLOGY Hct 40.6 36.0 - 48.0 03/05/2017 [facility] HEMATOLOGY RBC 4.78 4.20 - 5.40 03/05/2017 [facility] HEMATOLOGY Hgb 13.3 12.0 - 16.0 03/05/2017 [facility] HEMATOLOGY WBC 10.9 3.7 - 10.4 03/05/2017 [facility] URINE AND STOOL UA Urobilinogen <=1.0 mg/dL 0.1 - 1.0 03/05/2017 [facility] URINE AND STOOL UA Spec Grav >=1.050 *ABN* (03/04/17 7:01 PM) <=1.030 03/05/2017 [facility] URINE AND STOOL UA RBC 4 0 - 2 03/05/2017 [facility] URINE AND STOOL UA Mucus Few /LPF None Seen /LPF 03/05/2017 [facility] URINE AND STOOL UA WBC 20 0 - 5 03/05/2017 [facility] URINE AND STOOL UA Sq Epi Few /LPF Few /LPF 03/05/2017 [facility] URINE AND STOOL UA Blood Negative (03/04/17 7:01 PM) Negative 03/05/2017 [facility] URINE AND STOOL UA Bili Moderate *ABN* (03/04/17 7:01 PM) Negative 03/05/2017 [facility] URINE AND STOOL UA Nitrite Positive *ABN* (03/04/17 7:01 PM) Negative 03/05/2017 [facility] URINE AND STOOL UA Leuk Est Large *ABN* (03/04/17 7:01 PM) Negative 03/05/2017 [facility] URINE AND STOOL UA Protein 20 mg/dL Negative mg/dL 03/05/2017 [facility] URINE AND STOOL UA pH 6.5 5.0 - 8.0 03/05/2017 [facility] URINE AND STOOL UA Turbidity Clear (03/04/17 7:01 PM) Clear 03/05/2017 [facility] URINE AND STOOL UA Color Yellow *NA* (03/04/17 7:01 PM) Yellow 03/05/2017 [facility] URINE AND STOOL UA Glucose Negative mg/dL Negative mg/dL 03/05/2017 [facility] URINE AND STOOL UA Ketones Negative mg/dL Negative mg/dL 03/05/2017 [facility] CARDIAC ENZYMES Troponin-I <0.02 0.00 - 0.40 03/04/2017 [facility] CARDIAC ENZYMES CK MB <1.0 0.5 - 3.6 03/04/2017 [facility] CARDIAC ENZYMES Total CK 74 12 - 191 03/04/2017 [facility] CARDIAC ENZYMES CK MB Index <1.4 0.0 - 2.5 03/04/2017 [facility] CHEM PANEL eGFR 58 03/04/2017 Result Comment: [...] should be multiplied by the estimated BMI. [facility] CHEM PANEL Globulin 4.0 2.7 - 4.2 03/04/2017 [facility] CHEM PANEL A/G Ratio 0.8 0.7 - 1.6 03/04/2017 [facility] CHEM PANEL B/C Ratio 21 6 - 25 03/04/2017 [facility] CHEM PANEL Creatinine Lvl 1.06 0.50 - 1.40 03/04/2017 [facility] CHEM PANEL Chloride Lvl 110 95 - 109 03/04/2017 [facility] CHEM PANEL Potassium Lvl 4.0 3.5 - 5.1 03/04/2017 [facility] CHEM PANEL Bili Total 0.5 0.2 - 1.3 03/04/2017 [facility] CHEM PANEL AGAP 12.0 10.0 - 20.0 03/04/2017 [facility] CHEM PANEL Sodium Lvl 142 135 - 145 03/04/2017 [facility] CHEM PANEL AST 19 0 - 37 03/04/2017 [facility] CHEM PANEL Alk Phos 86 39 - 136 03/04/2017 [facility] CHEM PANEL ALT 19 0 - 65 03/04/2017 [facility] CHEM PANEL Albumin Lvl 3.4 3.5 - 5.0 03/04/2017 [facility] CHEM PANEL Total Protein 7.4 6.4 - 8.4 03/04/2017 [facility] CHEM PANEL Calcium Lvl 10.1 8.5 - 10.5 03/04/2017 [facility] CHEM PANEL CO2 24 24 - 32 03/04/2017 [facility] CHEM PANEL BUN 22 7 - 22 03/04/2017 [facility] CHEM PANEL Glucose Lvl 110 70 - 99 03/04/2017 [facility] HEMATOLOGY PTT 24.3 22.9 - 35.8 03/04/2017 [facility] HEMATOLOGY PT 12.6 12.0 - 14.7 03/04/2017 [facility] HEMATOLOGY INR 0.92 0.85 - 1.17 03/04/2017 [facility] HEMATOLOGY MPV 9.0 7.4 - 10.4 03/04/2017 [facility] HEMATOLOGY MCHC 32.6 32.0 - 36.0 03/04/2017 [facility] HEMATOLOGY Platelet 297 133 - 450 03/04/2017 [facility] HEMATOLOGY RDW 15.5 11.5 - 14.5 03/04/2017 [facility] HEMATOLOGY RBC 4.90 4.20 - 5.40 03/04/2017 [facility] HEMATOLOGY Hct 41.6 36.0 - 48.0 03/04/2017 [facility] HEMATOLOGY MCV 84.9 80.0 - 98.0 03/04/2017 [facility] HEMATOLOGY MCH 27.6 27.0 - 31.0 03/04/2017 [facility] HEMATOLOGY Hgb 13.5 12.0 - 16.0 03/04/2017 [facility] HEMATOLOGY WBC 10.3 3.7 - 10.4 03/04/2017 [facility] HEMATOLOGY Eosinophils # 0.1 0.0 - 0.5 03/04/2017 [facility] HEMATOLOGY Lymphocytes # 2.2 1.0 - 5.5 03/04/2017 [facility] HEMATOLOGY Monocytes # 0.8 0.0 - 0.8 03/04/2017 [facility] HEMATOLOGY Segs-Bands # 7.2 1.5 - 8.1 03/04/2017 [facility] HEMATOLOGY Basophils 0.3 0.0 - 1.0 03/04/2017 [facility] HEMATOLOGY Eosinophils 0.7 0.0 - 4.0 03/04/2017 [facility] HEMATOLOGY Monocytes 8.0 2.0 - 12.0 03/04/2017 [facility] HEMATOLOGY Lymphocytes 21.1 20.0 - 40.0 03/04/2017 [facility] HEMATOLOGY Segs 69.9 45.0 - 75.0 03/04/2017 [facility] LIPIDS CHD Risk 3.05 3.90 - 5.80 03/04/2017 [facility] LIPIDS VLDL 47 03/04/2017 [facility] LIPIDS LDL (Calculated) 74 <=99 mg/dL 03/04/2017 [facility] LIPIDS Chol 180 <=199 mg/dL 03/04/2017 [facility] LIPIDS Trig 236 <=149 mg/dL 03/04/2017 [facility] LIPIDS HDL 59 >=61 mg/dL 03/04/2017 [facility] CHEMISTRY Hgb A1C 6.3 <=5.6 % 03/04/2017 [facility] CHEM PANEL POC BUN 24 7 - 22 03/04/2017 [facility] CHEM PANEL POC Creatinine 1.0 0.5 - 1.4 03/04/2017 [facility] CHEM PANEL POC Ion Ca 1.29 1.05 - 1.25 03/04/2017 [facility] CHEM PANEL POC Glucose 114 70 - 99 03/04/2017 [facility] CHEM PANEL eGFR 63 03/04/2017 Result Comment: [...] should be multiplied by the estimated BMI. [facility] CHEM PANEL POC Hemoglobin 15.3 12.0 - 16.0 03/04/2017 [facility] CHEM PANEL POC Hematocrit 45.0 36.0 - 48.0 03/04/2017 [facility] CHEM PANEL POC AGAP 16.0 10.0 - 20.0 03/04/2017 [facility] CHEM PANEL POC Potassium 4.0 3.5 - 5.1 03/04/2017 [facility] CHEM PANEL POC Chloride 108 95 - 109 03/04/2017 [facility] [facility] CHEM PANEL POC Carbon Dioxide 24 24 - 32 03/04/2017 [facility] CHEM PANEL POC Sodium 143 135 - 145 03/04/2017 [facility] HEMATOLOGY Basophils 0.1 0.0 - 1.0 06/17/2014 [facility] HEMATOLOGY Lymphocytes # 1.4 1.0 - 5.5 06/17/2014 [facility] HEMATOLOGY Eosinophils # 0.0 0.0 - 0.5 06/17/2014 [facility] HEMATOLOGY Monocytes # 0.6 0.0 - 0.8 06/17/2014 [facility] HEMATOLOGY Basophils # 0.0 0.0 - 0.2 06/17/2014 [facility] HEMATOLOGY Segs-Bands # 6.6 1.5 - 8.1 06/17/2014 [facility] HEMATOLOGY Segs 77.0 45.0 - 75.0 06/17/2014 [facility] HEMATOLOGY Lymphocytes 16.0 20.0 - 40.0 06/17/2014 [facility] HEMATOLOGY Eosinophils 0.2 0.0 - 4.0 06/17/2014 [facility] HEMATOLOGY Monocytes 6.7 2.0 - 12.0 06/17/2014 [facility] MPV 8.8 7.4 - 10.4 06/17/2014 [facility] RDW 14.5 11.5 - 14.5 06/17/2014 [facility] HEMATOLOGY MCHC 32.2 32.0 - 36.0 06/17/2014 [facility] Platelet 174 133 - 450 06/17/2014 [facility] MCH 29.3 27.0 - 31.0 06/17/2014 [facility] RBC 3.77 4.20 - 5.40 06/17/2014 [facility] Hgb 11.0 12.0 - 16.0 06/17/2014 [facility] Hct 34.2 36.0 - 48.0 06/17/2014 [facility] MCV 90.9 80.0 - 98.0 06/17/2014 [facility] WBC 8.5 3.7 - 10.4 06/17/2014 [facility] Pathology Reports No Data Provided for This [...] 3. Mild age-related parenchymal volume loss. SL: [id number] 03/05/2017 [facility] Chest 1view DX Clinical Indication: - slurred speech Comparison: None FINDINGS: Single frontal radiograph of the chest is performed. Heart size is within normal limits. Mediastinal contours are unremarkable. Lungs are clear without infiltrate or mass. No pleural effusion or pneumothorax. No acute osseous abnormality. IMPRESSION: 1. No radiographic evidence for acute process in the chest. SL: [id number] 03/04/2017 [facility] Brain/Neck CTA EXAM: CT angiography of the [...] There is persistent origin of the right PHILOSOPHY FACULTY MEMBER. Atherosclerotic calcifications course along the cavernous portion of the left internal carotid artery. No hemodynamically significant stenosis or aneurysm identified. The middle and anterior cerebral arteries are also patent without aneurysm. 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 No acute intracranial abnormalities otherwise. No hemodynamically significant stenosis or aneurysm involving the head or neck arterial vasculature. SL: [id number] 03/04/2017 [facility] Consultation Notes No Data Provided for This Section Discharge Summaries No Data Provided for This Section History and Physicals No Data Provided for This Section Vital Signs Vital Sign Value Date Comments Source Temperature Oral (F) 98.1 F 03/06/2017 [facility] Heart Rate 69 03/06/2017 [facility] Respitory Rate 14 03/06/2017 [facility] Systolic (mm Hg) 131 03/06/2017 [facility] Diastolic (mm Hg) 90 03/06/2017 [facility] Temperature Oral (F) 98.7 F 03/06/2017 [facility] Respitory Rate 20 03/06/2017 [facility] Heart Rate 65 03/06/2017 [facility] Systolic (mm Hg) 110 03/06/2017 [facility] Diastolic (mm Hg) 72 03/06/2017 [facility] Respitory Rate 20 03/06/2017 [facility] Systolic (mm Hg) 124 03/06/2017 [facility] Diastolic (mm Hg) 75 03/06/2017 [facility] Heart Rate 67 03/06/2017 [facility] Temperature Oral (F) 98.2 F 03/06/2017 [facility] BMI Calculated 37.14 03/05/2017 [facility] Height 175.26 cm 03/05/2017 [facility] Weight 114.091 03/05/2017 [facility] Weight 112.443 03/04/2017 [facility] Height 175.26 cm 03/04/2017 [facility] BMI Calculated 36.61 03/04/2017 [facility] Diastolic (mm Hg) 55 06/17/2014 [facility] Temperature Oral (F) 98 F 06/17/2014 [facility] Systolic (mm Hg) 98 06/17/2014 [facility] Heart Rate 54 06/17/2014 [facility] Respitory Rate 16 06/17/2014 [facility] Diastolic (mm Hg) 66 06/17/2014 [facility] Respitory Rate 14 06/17/2014 [facility] Heart Rate 62 06/17/2014 [facility] Systolic (mm Hg) 104 06/17/2014 [facility] Temperature Oral (F) 98.2 F 06/17/2014 [facility] Diastolic (mm Hg) 63 06/17/2014 [facility] Systolic (mm Hg) 101 06/17/2014 [facility] Respitory Rate 14 06/17/2014 [facility] Heart Rate 67 06/17/2014 [facility] Temperature Oral (F) 97.8 F 06/17/2014 [facility] Weight 114.744 06/16/2014 [facility] Weight 102.727 06/16/2014 [facility] BMI Calculated 34.43 06/16/2014 [facility] Height 172.72 cm 06/16/2014 [facility] Encounters Location Location Details Encounter Type Encounter Number Reason For Visit Attending Provider ADM Date DC Date Status Source [id number] L KNEE LOLLY GREEN 05/18/2013 Active [facility] Inpatient [id number] Kaiser Raezmazam 06/16/2014 06/17/2014 [facility] Inpatient [id number] Cecilia Austin 03/04/2017 03/06/2017 [facility] Procedures Procedure Code Date Perfomer Comments Source Appendix operation [id number] [facility] Cholecystectomy [id number] [facility] Hysterectomy [id number] [facility] Laparoscopic sleeve gastrectomy [id number] [facility] Assessment and Plan Assessment and Plan Date Source Extracted from:Title: Clinical Document Author: Álvaro Hansen MD Date: 03/06/17 DC Summary dictated # [id number] Extracted from:Title: Neuro Progress Note Author: Glenn Grande DO Date: 03/05/17 Assessment/Plan Patient likely with stroke currently pending MRI. Will treat with antiplatelet medication. She has had multiple strokes in the past that she did not know aboutrecommend stop smoking. Acute UTI Cerebral infarction due to thrombosis of left middle cerebral artery Ordered: [id number] [facility] Care/Day 25 Minutes, 03/05/17 18:07:00 CDT, 24 hr [id number] Initial Inpatient Consult New/Estab Pt 80 Min, 03/04/17 20:57:00 CDT, 24 hr Slurred speech Ordered: [id number] [facility] Care/Day 25 Minutes, 03/05/17 18:07:00 CDT, [...] -tramadol Code Full Admit to inpatient 03/06/2017 [facility] Extracted from:Title: Clinical Document Author: Kaiser Saldivar MD Date: 06/16/14 Post Operative Procedure Note A complete detailed Operative Report must follow within 24 hours of the procedure. Pre-Operative Diagnosis: Acute appendicitis Post-Operative Diagnosis: same Surgeon/Endoscopist/Physician(s): Janna Aoc [facility] Operations Staff Officer(s): none Procedure Performed: lap appy Estimated Blood Loss: min Specimens Removed: appendix Findings of the Procedure: as above Dictation ID for complete detailed Operative Report:: Anesthesia:gen/local 06/17/2014 [facility] Plan of Care No Data Provided for [...] No; Reg Smoking Cessation Counseling No 03/05/2017 [facility] Family History No Data Provided for This Section Advance Directives No Data Provided for This Section Functional Status No Data Provided for This Section
[2019-03-24 16:10] VITALS: BP 109/70
== END | disposition home or self-care (01) ==
LOC: OR 12:16
PROVIDERS: ATTEND Ophthalmology
DX: H25.12 Age-related nuclear cataract, left eye (principal); I69.828 Other speech and language deficits following other cerebrovascular disease; M17.10 Unilateral primary osteoarthritis, unspecified knee; M16.10 Unilateral primary osteoarthritis, unspecified hip; F32.9 Major depressive disorder, single episode, unspecified; F17.210 Nicotine dependence, cigarettes, uncomplicated; Z79.82 Long term (current) use of aspirin
CPT/HCPCS: 66984; J2250; J3010; V2787